=== PATIENT | female | born 1945 | race American Indian/Alaskan Native ===

== ENCOUNTER 2017-12-25 08:36 | Inpatient (IN) | payer MEDICARE ==
[2017-12-25] MEDS ORDERED: MAGNESIUM SULFATE 2GM/50ML 2 GM/50 ML BAG IV ONE ×2 (08:55→09:03)
[2017-12-25] MEDS ORDERED: DUONEB *Not for PRN Use IH ONE (08:55)
[2017-12-25] MEDS ORDERED: PROVENTIL IH ONE ×3 (08:59→11:50)
[2017-12-25] MEDS ORDERED: ATROVENT IH ONE ×3 (08:59→09:09)
[2017-12-25] MEDS ORDERED: NACL 0.9% 250ML 250 ML IV ONE (09:10)
--- NOTE | 2017-12-25 09:11 | Emergency Department Report ---
ED Shortness of Breath HPI - General Chief Complaint: Dyspnea/Respdistress Stated Complaint: RESPIRATORY Time Seen by Provider: 12/25/17 09:05 Source: patient, RN notes reviewed Mode of arrival: Ambulatory Limitations: Physical Limitation - History of Present Illness Initial Comments: This is a 72-year-old female who was previously unknown to this provider. Has a past medical history of tobacco consumption, asthma, hypertension, diabetes. Patient presents to the ER complaining of cough, wheezing, shortness of breath, mucous production. Her symptoms are constant. There were some physical exertion. They decrease with rest. There is no leg pain, there is no leg swelling, there is no chest pain, there is no hematemesis or bright red blood per rectum, there are no DVT or pulmonary embolus risk factors. MD Complaint: shortness of breath, cough, "asthma attack" -: Gradual Improves With: oxygen, rest, bronchodilators, upright position Worsens With: lying flat, exertion Known History Of: asthma Treatments Prior to Arrival: none - Related Data Home Oxygen Therapy: No Home Medications Medication Instructions Recorded Confirmed Last Taken Amlodipine Besylate [Norvasc] 5 mg PO QDAY 12/25/17 12/25/17 Unknown Chlorthalidone [Thalitone] 25 mg PO QDAY 12/25/17 12/25/17 Unknown Pravastatin [Pravachol] 40 mg PO QHS 12/25/17 12/25/17 Unknown cloNIDine [Catapres] 0.2 mg PO TID 12/25/17 12/25/17 Unknown hydrALAZINE [Apresoline TAB] 100 mg PO BID 12/25/17 12/25/17 Unknown Allergies Allergy/AdvReac Type Severity Reaction Status Date / Time No Known Allergies Allergy Verified 12/25/17 09:37 ED Review of Systems ROS: Stated complaint: RESPIRATORY Other details as noted in HPI Constitutional: malaise. denies: fever Eyes: denies: vision change ENT: denies: epistaxis Respiratory: cough, shortness of breath, SOB with exertion, SOB at rest, wheezing Cardiovascular: dyspnea on exertion. denies: chest pain Gastrointestinal: denies: vomiting Genitourinary: denies: dysuria Musculoskeletal: arthralgia Skin: denies: lesions Neurological: weakness Psychiatric: anxiety ED Past Medical Hx - Past Medical History Previous Medical History?: Yes Hx Asthma: Yes - Surgical History Past Surgical History?: Yes Additional Surgical History: hysterectomy - Social History Smoking Status: Current Every Day Smoker Substance Use Type: Alcohol, Prescribed - Medications Home Medications: Home Medications Medication Instructions Recorded Confirmed Last Taken Type Amlodipine Besylate [Norvasc] 5 mg PO QDAY 12/25/17 12/25/17 Unknown History Chlorthalidone [Thalitone] 25 mg PO QDAY 12/25/17 12/25/17 Unknown History Pravastatin [Pravachol] 40 mg PO QHS 12/25/17 12/25/17 Unknown History cloNIDine [Catapres] 0.2 mg PO TID 12/25/17 12/25/17 Unknown History hydrALAZINE [Apresoline TAB] 100 mg PO BID 12/25/17 12/25/17 Unknown History ED Physical Exam - General Limitations: Physical Limitation General appearance: alert, in no apparent distress, obese - Head Head exam: Present: atraumatic, normocephalic - Eye Eye exam: Present: normal appearance, EOMI. Absent: nystagmus - ENT ENT exam: Present: normal exam, normal orophraynx, mucous membranes moist, normal external ear exam - Neck Neck exam: Present: normal inspection, full ROM. Absent: tenderness, meningismus, lymphadenopathy, thyromegaly - Respiratory Respiratory exam: Present: respiratory distress, wheezes, rhonchi, accessory muscle use - Cardiovascular Cardiovascular Exam: Present: normal rhythm, tachycardia, normal heart sounds. Absent: systolic murmur, diastolic murmur, rubs, gallop - GI/Abdominal GI/Abdominal exam: Present: soft, normal bowel sounds. Absent: distended, tenderness, guarding, rebound, rigid, pulsatile mass - Extremities Exam Extremities exam: Present: normal inspection, full ROM, normal capillary refill , other (there is no palpable cord. There is a negative Homans sign.). Absent : tenderness, pedal edema, joint swelling, calf tenderness - Back Exam Back exam: Present: normal inspection, full ROM. Absent: tenderness, CVA tenderness (R), paraspinal tenderness, vertebral tenderness - Neurological Exam Neurological exam: Present: alert, oriented X3, CN II-XII intact, other ( Extraocular movements intact. Tongue midline. No facial droop. Facial sensation intact to light touch in the V1, V2, V3 distribution bilaterally. 5 and 5 strength in 4 extremities.. Sensation is intact to light touch in 4 extremities.). Absent: motor sensory deficit - Psychiatric Psychiatric exam: Present: normal affect, normal mood - Skin Skin exam: Present: warm, dry, intact, normal color. Absent: rash ED Course Vital Signs 12/25/17 12/25/17 12/25/17 08:39 09:04 09:07 Temperature 98.3 F Pulse Rate 101 H 91 H Pulse Rate [ Bilateral Throughout] Respiratory 36 H 24 24 Rate Respiratory Rate [Bilateral Throughout] Blood Pressure 168/76 Blood Pressure 144/64 [Right] O2 Sat by Pulse 84 91 94 Oximetry 12/25/17 12/25/17 12/25/17 09:10 09:45 10:07 Temperature Pulse Rate 88 88 Pulse Rate [ 92 H Bilateral Throughout] Respiratory 20 20 Rate Respiratory 25 H Rate [Bilateral Throughout] Blood Pressure Blood Pressure 137/54 [Right] O2 Sat by Pulse 95 95 Oximetry 12/25/17 12/25/17 12/25/17 10:52 11:37 11:48 Temperature Pulse Rate 89 Pulse Rate [ 88 Bilateral Throughout] Respiratory 24 20 Rate Respiratory 20 Rate [Bilateral Throughout] Blood Pressure Blood Pressure [Right] O2 Sat by Pulse 85 95 Oximetry 12/25/17 12/25/17 12/25/17 12:02 12:09 13:09 Temperature 98.4 F Pulse Rate 104 H 101 H 92 H Pulse Rate [ Bilateral Throughout] Respiratory 22 20 20 Rate Respiratory Rate [Bilateral Throughout] Blood Pressure Blood Pressure 120/84 158/70 [Right] O2 Sat by Pulse 92 94 92 Oximetry ED Medical Decision Making - Lab Data Result diagrams: 12/25/17 09:59 12/25/17 09:59 Vital Signs 12/25/17 12/25/17 12/25/17 08:39 09:04 09:07 Temperature 98.3 F Pulse Rate 101 H 91 H Pulse Rate [ Bilateral Throughout] Respiratory 36 H 24 24 Rate Respiratory Rate [Bilateral Throughout] Blood Pressure 168/76 Blood Pressure 144/64 [Right] O2 Sat by Pulse 84 91 94 Oximetry 12/25/17 12/25/17 12/25/17 09:10 09:45 10:07 Temperature Pulse Rate 88 88 Pulse Rate [ 92 H Bilateral Throughout] Respiratory 20 20 Rate Respiratory 25 H Rate [Bilateral Throughout] Blood Pressure Blood Pressure 137/54 [Right] O2 Sat by Pulse 95 95 Oximetry 12/25/17 12/25/17 12/25/17 10:52 11:37 11:48 Temperature Pulse Rate 89 Pulse Rate [ 88 Bilateral Throughout] Respiratory 24 20 Rate Respiratory 20 Rate [Bilateral Throughout] Blood Pressure Blood Pressure [Right] O2 Sat by Pulse 85 95 Oximetry 12/25/17 12/25/17 12/25/17 12:02 12:09 13:09 Temperature 98.4 F Pulse Rate 104 H 101 H 92 H Pulse Rate [ Bilateral Throughout] Respiratory 22 20 20 Rate Respiratory Rate [Bilateral Throughout] Blood Pressure Blood Pressure 120/84 158/70 [Right] O2 Sat by Pulse 92 94 92 Oximetry Lab Results 12/25/17 12/25/17 Range/Units 09:59 09:59 WBC 13.4 H (4.5-11.0) K/mm3 RBC 4.77 (3.65-5.03) M/mm3 Hgb 14.2 (10.1-14.3) gm/dl Hct 43.6 H (30.3-42.9) % MCV 91 (79-97) fl MCH 30 (28-32) pg MCHC 33 (30-34) % RDW 15.2 (13.2-15.2) % Plt Count 216 (140-440) K/mm3 Lymph % (Auto) 15.2 (13.4-35.0) % [place] % (Auto) 10.2 H (0.0-7.3) % Eos % (Auto) 1.3 (0.0-4.3) % Baso % (Auto) 0.4 (0.0-1.8) % Lymph # 2.0 (1.2-5.4) K/mm3 [place] # 1.4 H (0.0-0.8) K/mm3 Eos # 0.2 (0.0-0.4) K/mm3 Baso # 0.1 (0.0-0.1) K/mm3 Seg Neutrophils % 72.9 H (40.0-70.0) % Seg Neutrophils # 9.8 H (1.8-7.7) K/mm3 Sodium 137 (137-145) mmol/L Potassium 3.5 L (3.6-5.0) mmol/L Chloride 97.9 L (98-107) mmol/L Carbon Dioxide 23 (22-30) mmol/L Anion Gap 20 mmol/L BUN 11 (7-17) mg/dL Creatinine 0.7 (0.7-1.2) mg/dL Estimated GFR > 60 ml/min BUN/Creatinine Ratio 16 % Glucose 137 H (65-100) mg/dL Calcium 9.4 (8.4-10.2) mg/dL - EKG Data -: EKG Interpreted by [place] EKG shows normal: sinus rhythm Rate: normal - EKG Data When compared to previous EKG there are: previous EKG unavailable 12/25/17 13:17 Normal sinus, 91 bpm, normal axis, normal intervals, not morphologically consistent with ST elevation myocardial infarction. Poor R-wave progression is noted. - Radiology Data Radiology results: report reviewed X-ray of the chest, interpreted by radiology, possible right lower lobe process , otherwise no acute disease - Medical Decision Making Differential diagnosis, including but not limited to: COPD, asthma exacerbation , pneumonia, pneumonitis Assessment and plan: 72-year-old female, chronic tobacco use, with no pulmonary embolus or DVT risk factors who is low risk by well's criteria, with cough, wheezing, shortness of breath that is painless. Patient hypoxic on room air. Patient becomes quite symptomatic when ambulating. Patient desaturates to the mid 80s. She is treated aggressively with albuterol Atrovent, steroids, magnesium. She still remains symptomatic. Additional albuterol is ordered. Patient covered empirically with antibiotics, Levaquin. Based on diffuse wheezes, I favor a reactive airway process over an infectious process. Patient appears to be euvolemic, and in my opinion would not benefit from a 30 mL/kg bolus of IV fluids. Tachycardia appreciated, tachypnea appreciated, leukocytosis appreciated. Abnormal vital signs most likely secondary to work of breathing. Leukocytosis most likely a stress demargination. Arterial blood gas is consistent with hypoxemic respiratory failure Case is presented to the Hospital physician, Dr. Gaston, who accepted the patient to the medical service. Critical care attestation.: If time is entered above; I have spent that time in minutes in the direct care of this critically ill patient, excluding procedure time. ED Disposition Clinical Impression: Acute hypoxemic respiratory failure Disposition: OP ADMIT IP TO THIS HOSP Is pt being admited?: Yes Does the pt Need Aspirin: Yes Condition: Good
[2017-12-25 10:35] LABS: Basophils # (Auto) 0.1 K/mm3 (0.0-0.1); Basophils % (Auto) 0.4 % (0.0-1.8); Eosinophils # (Auto) 0.2 K/mm3 (0.0-0.4); Eosinophils % (Auto) 1.3 % (0.0-4.3); Hematocrit 43.6 % (30.3-42.9); Hemoglobin 14.2 gm/dl (10.1-14.3); Lymphocytes % (Auto) 15.2 % (13.4-35.0); Mean Corpuscular HGB Conc 33 % (30-34); Mean Corpuscular Hemoglobin 30 pg (28-32); Mean Corpuscular Volume 91 fl (79-97); Monocytes # (Auto) 1.4 K/mm3 (0.0-0.8); Monocytes % (Auto) 10.2 % (0.0-7.3); Platelet Count 216 K/mm3 (140-440); Red Blood Count 4.77 M/mm3 (3.65-5.03); Red Cell Distribution Width 15.2 % (13.2-15.2)
[2017-12-25 10:47] LABS: BUN/Creatinine Ratio 16; Blood Urea Nitrogen 11 mg/dL (7-17); Calcium 9.4 mg/dL (8.4-10.2); Hemolysis Index 17
--- NOTE | 2017-12-25 11:18 | XRay Report ---
AP CHEST: HISTORY: Shortness of breath No comparison. There is normal heart size and pulmonary vascularity. Subtle air space opacity is suggested along the minor fissure within the right lung and right lung base. This probably represents atelectatic changes. No consolidation, pleural effusion or pneumothorax. IMPRESSION: No acute process noted.
[2017-12-25] MEDS ORDERED: LEVAQUIN 750MG/150ML 750 MG/150 ML BAG IV ONE (13:17)
[2017-12-25] MEDS ORDERED: NACL 0.9% 500 ML 500 ML IV ONE (13:17)
[2017-12-25] MEDS ORDERED: BABY ASPIRIN PO ONE (13:23)
--- NOTE | 2017-12-25 18:57 | History and Physical Report ---
History of Present Illness Date of examination: 12/25/17 Date of admission: 12/25/17 11:50 Medications and Allergies Allergies Allergy/AdvReac Type Severity Reaction Status Date / Time No Known Allergies Allergy Verified 12/25/17 09:37 Home Medications Medication Instructions Recorded Confirmed Last Taken Type Amlodipine Besylate [Norvasc] 5 mg PO QDAY 12/25/17 12/25/17 Unknown History Chlorthalidone [Thalitone] 25 mg PO QDAY 12/25/17 12/25/17 Unknown History Pravastatin [Pravachol] 40 mg PO QHS 12/25/17 12/25/17 Unknown History cloNIDine [Catapres] 0.2 mg PO TID 12/25/17 12/25/17 Unknown History hydrALAZINE [Apresoline TAB] 100 mg PO BID 12/25/17 12/25/17 Unknown History Exam - Constitutional Vitals: Temp Pulse Resp BP Pulse Ox 98.4 F 94 H 18 156/71 94 12/25/17 13:09 12/25/17 16:40 12/25/17 16:40 12/25/17 16:40 12/25/17 16:40 Results - Labs CBC & Chem 7: 12/25/17 09:59 12/25/17 09:59 Labs: Laboratory Last Values WBC 13.4 K/mm3 (4.5-11.0) H 12/25/17 09:59 RBC 4.77 M/mm3 (3.65-5.03) 12/25/17 09:59 Hgb 14.2 gm/dl (10.1-14.3) 12/25/17 09:59 Hct 43.6 % (30.3-42.9) H 12/25/17 09:59 MCV 91 fl (79-97) 12/25/17 09:59 MCH 30 pg (28-32) 12/25/17 09:59 MCHC 33 % (30-34) 12/25/17 09:59 RDW 15.2 % (13.2-15.2) 12/25/17 09:59 Plt Count 216 K/mm3 (140-440) 12/25/17 09:59 Lymph % (Auto) 15.2 % (13.4-35.0) 12/25/17 09:59 [place] % (Auto) 10.2 % (0.0-7.3) H 12/25/17 09:59 Eos % (Auto) 1.3 % (0.0-4.3) 12/25/17 09:59 Baso % (Auto) 0.4 % (0.0-1.8) 12/25/17 09:59 Lymph # 2.0 K/mm3 (1.2-5.4) 12/25/17 09:59 [place] # 1.4 K/mm3 (0.0-0.8) H 12/25/17 09:59 Eos # 0.2 K/mm3 (0.0-0.4) 12/25/17 09:59 Baso # 0.1 K/mm3 (0.0-0.1) 12/25/17 09:59 Seg Neutrophils % 72.9 % (40.0-70.0) H 12/25/17 09:59 Seg Neutrophils # 9.8 K/mm3 (1.8-7.7) H 12/25/17 09:59 POC ABG pH 7.366 (7.35-7.45) 12/25/17 13:25 POC ABG pCO2 39.3 (35-45) 12/25/17 13:25 POC ABG pO2 48 (80-105) L 12/25/17 13:25 POC ABG HCO3 22.5 12/25/17 13:25 POC ABG Total CO2 24 12/25/17 13:25 POC ABG O2 Sat 82 12/25/17 13:25 POC ABG Base Excess -3 12/25/17 13:25 FiO2 21 % 12/25/17 13:25 Sodium 137 mmol/L (137-145) 12/25/17 09:59 Potassium 3.5 mmol/L (3.6-5.0) L 12/25/17 09:59 Chloride 97.9 mmol/L (98-107) L 12/25/17 09:59 Carbon Dioxide 23 mmol/L (22-30) 12/25/17 09:59 Anion Gap 20 mmol/L 12/25/17 09:59 BUN 11 mg/dL (7-17) 12/25/17 09:59 Creatinine 0.7 mg/dL (0.7-1.2) 12/25/17 09:59 Estimated GFR > 60 ml/min 12/25/17 09:59 BUN/Creatinine Ratio 16 % 12/25/17 09:59 Glucose 137 mg/dL (65-100) H 12/25/17 09:59 Calcium 9.4 mg/dL (8.4-10.2) 12/25/17 09:59
[2017-12-25] MEDS ORDERED: TYLENOL PO PRN (18:58)
[2017-12-25] MEDS ORDERED: ZOFRAN IV PRN (18:58)
[2017-12-25] MEDS ORDERED: PERCOCET 5/325 PO PRN (18:58)
[2017-12-25] MEDS ORDERED: SODIUM CHLORIDE FLUSH SYRINGE 10 ML IV PRN (18:58)
[2017-12-25] MEDS ORDERED: DUONEB *Not for PRN Use IH (19:01)
[2017-12-25] MEDS ORDERED: PROVENTIL IH PRN (19:18)
[2017-12-25] MEDS: DUONEB *Not for PRN Use IH SCH (20:12)
[2017-12-25] MEDS: NORVASC PO SCH (20:39)
[2017-12-25] MEDS: THALITONE PO SCH (20:39)
[2017-12-25] MEDS: CATAPRES PO SCH (20:40)
[2017-12-25] MEDS: LEVAQUIN 750MG/150ML 750 MG/150 ML BAG IV SCH (22:38)
[2017-12-25] MEDS: APRESOLINE PO SCH (22:41)
[2017-12-25] MEDS: PRAVACHOL PO SCH (22:41)
[2017-12-25] MEDS: PEPCID PO SCH (22:41)
[2017-12-25] MEDS: SODIUM CHLORIDE FLUSH SYRINGE 10 ML IV SCH (22:42)
[2017-12-26 06:02] LABS: Basophils % (Auto) 0.2 % (0.0-1.8); Hematocrit 38.9 % (30.3-42.9); Hemoglobin 13.2 gm/dl (10.1-14.3); Lymphocytes # (Auto) 1.3 K/mm3 (1.2-5.4); Lymphocytes % (Auto) 7.8 % (13.4-35.0); Mean Corpuscular HGB Conc 34 % (30-34); Mean Corpuscular Hemoglobin 31 pg (28-32); Mean Corpuscular Volume 91 fl (79-97); Monocytes # (Auto) 0.5 K/mm3 (0.0-0.8); Monocytes % (Auto) 2.8 % (0.0-7.3); Platelet Count 198 K/mm3 (140-440); Red Blood Count 4.28 M/mm3 (3.65-5.03); Red Cell Distribution Width 15.1 % (13.2-15.2)
[2017-12-26 06:25] LABS: Alanine Aminotransferase 13 units/L (7-56); Albumin 3.6 g/dL (3.9-5); BUN/Creatinine Ratio 19; Blood Urea Nitrogen 17 mg/dL (7-17); Calcium 8.9 mg/dL (8.4-10.2); Hemolysis Index 3
--- NOTE | 2017-12-26 07:05 | Event Note ---
Date: 12/25/17 See dictated H/p in reports
[2017-12-26] MEDS ORDERED: K-DUR PO ONE (07:10)
[2017-12-26] MEDS: DUONEB *Not for PRN Use IH SCH ×4 (07:14→22:35)
--- NOTE | 2017-12-26 08:17 | History and Physical Report ---
CHIEF COMPLAINT: Increasing shortness of breath for the last 2-3 days. HISTORY OF PRESENT ILLNESS: A 72-year-old with history of COPD, hypertension, and hyperlipidemia, comes in for increasing shortness of breath for the last 3 days with increased wheezing. Not responding to inhalers. Cough productive of mucoid sputum. No fever, no chills. No recent travels. No exacerbating or relieving factors. Improved with oxygen and bronchodilators. PAST MEDICAL HISTORY: As mentioned, history of asthma and COPD. PAST SURGICAL HISTORY: Hysterectomy. SOCIAL HISTORY: Current everyday smoker. FAMILY HISTORY: Hypertension. CURRENT MEDICATIONS: Amlodipine 5 mg once a day, pravastatin 40 mg p.o. daily, clonidine 0.2 t.i.d., hydralazine 100 mg p.o. b.i.d., chlorthalidone 25 mg once a day. REVIEW OF SYSTEMS: Significant for increasing wheezing and shortness of breath and productive cough. Otherwise, review of systems negative. A 14-point review of systems done. PHYSICAL EXAMINATION: GENERAL: As elderly female in respiratory distress, moderate. VITAL SIGNS: Blood pressure 156/86, temperature 98, pulse is 89, respirations are 21. HEENT: Unremarkable. Pupils equal and reactive. NECK: Supple, no lymphadenopathy, no thyromegaly. LUNGS: Bilateral inspiratory and expiratory rhonchi present. CARDIOVASCULAR: S1, S2 heard. No gallop, no murmur, no rub. Apical impulse in left fifth intercostal space and midclavicular line. ABDOMEN: Soft and benign. No hepatosplenomegaly. No guarding, no rigidity. Hernial orifices are normal. EXTREMITIES: Good pedal pulses. No pedal edema. CENTRAL NERVOUS SYSTEM: Alert and oriented x 4, nonfocal exam. SKIN: Normal. LABORATORY DATA: White count is 13,400, H and H is 14.2 and 43.6, platelet count is 216,000. ABG significant for pH of 7.366, pCO2 of 39, pO2 of 48, bicarbonate of 22. Electrolytes: Potassium is low 3.5, glucose is 137. Chest x-ray shows changes consistent with COPD. No infiltrate. No acute process. EKG sinus tachycardia. Nonspecific ST-T wave changes. ASSESSMENT AND PLAN: 1. Acute respiratory failure secondary to chronic obstructive pulmonary disease. The patient started on IV Solu-Medrol, IV Levaquin and DuoNeb q. 6 round the clock and q. 3 p.r.n. 2. Hypertension. Continue amlodipine, chlorthalidone, clonidine and hydralazine. 3. Hyperlipidemia. Continue pravastatin. 4. Hypokalemia. The patient is supplemented. 5. Deep venous thrombosis prophylaxis, heparin. 6. Chronic obstructive pulmonary disease exacerbation as mentioned and acute respiratory failure. IV Solu-Medrol, IV Levaquin and DuoNebs. JOB# [id number] ANA/NTS
[2017-12-26] MEDS: NORVASC PO SCH (09:44)
[2017-12-26] MEDS: PEPCID PO SCH ×2 (09:45→22:30)
[2017-12-26] MEDS: CATAPRES PO SCH ×3 (09:45→20:41)
[2017-12-26] MEDS: APRESOLINE PO SCH ×2 (09:45→22:30)
[2017-12-26] MEDS: LEVAQUIN 750MG/150ML 750 MG/150 ML BAG IV SCH (09:46)
[2017-12-26] MEDS: HEPARIN SUB-Q SCH ×2 (09:54→22:32)
[2017-12-26] MEDS: THALITONE PO SCH (09:54)
--- NOTE | 2017-12-26 11:06 | Consultation ---
History of Present Illness Consult date: 12/26/17 Requesting physician: STIVEN HILL Reason for consult: other (Acute Hypoxemic Respiratory Failure) History of present illness: PULMONARY/CCM CONSULT NOTE (Full dictation # [id number]) Please see dictated notes for full details Medications and Allergies Allergies Allergy/AdvReac Type Severity Reaction Status Date / Time No Known Allergies Allergy Verified 12/25/17 09:37 Home Medications Medication Instructions Recorded Confirmed Last Taken Type Amlodipine Besylate [Norvasc] 5 mg PO QDAY 12/25/17 12/25/17 Unknown History Chlorthalidone [Thalitone] 25 mg PO QDAY 12/25/17 12/25/17 Unknown History Pravastatin [Pravachol] 40 mg PO QHS 12/25/17 12/25/17 Unknown History cloNIDine [Catapres] 0.2 mg PO TID 12/25/17 12/25/17 Unknown History hydrALAZINE [Apresoline TAB] 100 mg PO BID 12/25/17 12/25/17 Unknown History Active Meds: Active Medications Acetaminophen (Tylenol) 650 mg PO Q4H PRN PRN Reason: Pain MILD(1-3)/Fever >100.5/PHILLIP Albuterol (Proventil) 2.5 mg IH Q4HRT PRN PRN Reason: Shortness Of Breath Albuterol/Ipratropium (Duoneb *Not For Prn Use*) 1 ampul IH QIDRT [facility] Last Admin: 12/26/17 07:14 Dose: 1 ampul Amlodipine Besylate (Norvasc) 5 mg PO QDAY [facility] Last Admin: 12/26/17 09:44 Dose: 5 mg Chlorthalidone (Thalitone) 25 mg PO QDAY [facility] Last Admin: 12/26/17 09:54 Dose: 25 mg Clonidine HCl (Catapres) 0.2 mg PO TID [facility] Last Admin: 12/26/17 09:45 Dose: 0.2 mg Famotidine (Pepcid) 20 mg PO BID [facility] Last Admin: 12/26/17 09:45 Dose: 20 mg Heparin Sodium (Porcine) (Heparin) 5,000 unit SUB-Q Q12HR [facility] Last Admin: 12/26/17 09:54 Dose: 5,000 unit Hydralazine HCl (Apresoline) 100 mg PO BID [facility] Last Admin: 12/26/17 09:45 Dose: 100 mg Levofloxacin/Dextrose (Levaquin 750mg/150ml) 750 mg in 150 mls @ 100 mls/hr IV Q24HR [facility]; Protocol Last Admin: 12/26/17 09:46 Dose: 100 mls/hr Methylprednisolone Sodium Succinate (Solu-Medrol) 125 mg IV Q8HR [facility] Last Admin: 12/26/17 06:39 Dose: 125 mg Ondansetron HCl (Zofran) 4 mg IV Q8H PRN PRN Reason: Nausea And Vomiting Oxycodone/Acetaminophen (Percocet 5/325) 1 tab PO Q6H PRN PRN Reason: Pain, Moderate (4-6) Potassium Chloride (K-Dur) 20 meq PO ONCE ONE Stop: 12/26/17 07:11 Pravastatin Sodium (Pravachol) 40 mg PO QHS [facility] Last Admin: 12/25/17 22:41 Dose: 40 mg Sodium Chloride (Sodium Chloride Flush Syringe 10 Ml) 10 ml IV BID [facility] Last Admin: 12/25/17 22:42 Dose: 10 ml Sodium Chloride (Sodium Chloride Flush Syringe 10 Ml) 10 ml IV PRN PRN PRN Reason: LINE FLUSH Physical Examination Vital signs: Vital Signs Temp Pulse Resp BP Pulse Ox 98.3 F 101 H 36 H 168/76 84 12/25/17 08:39 12/25/17 08:39 12/25/17 08:39 12/25/17 08:39 12/25/17 08:39 Results - Laboratory Findings CBC and BMP: 12/26/17 05:28 12/26/17 05:28 ABG POC ABG pH 7.366 (7.35-7.45) 12/25/17 13:25 POC ABG pCO2 39.3 (35-45) 12/25/17 13:25 POC ABG pO2 48 (80-105) L 12/25/17 13:25 POC ABG HCO3 22.5 12/25/17 13:25 POC ABG Total CO2 24 12/25/17 13:25 POC ABG O2 Sat 82 12/25/17 13:25 Abnormal lab findings: Abnormal Labs 12/25/17 12/25/17 12/25/17 09:59 09:59 13:25 WBC 13.4 H Hct 43.6 H Lymph % (Auto) [place] % (Auto) 10.2 H [place] # 1.4 H Seg Neutrophils % 72.9 H Seg Neutrophils # 9.8 H POC ABG pO2 48 L Potassium 3.5 L Chloride 97.9 L Glucose 137 H Albumin 12/26/17 12/26/17 05:28 05:28 WBC 16.2 H Hct Lymph % (Auto) 7.8 L [place] % (Auto) [place] # Seg Neutrophils % 89.2 H Seg Neutrophils # 14.5 H POC ABG pO2 Potassium Chloride Glucose 147 H Albumin 3.6 L
[2017-12-26 14:38] LABS: C-Reactive Protein 9.3 mg/dL (0.00-1.30)
--- NOTE | 2017-12-26 14:50 | Progress Note ---
Assessment and Plan Assessment and plan: Patient is 72 yo woman with a history copd, hypertension, dyslipidemia and tobacco dependency who presented with sob. She was found to have pO2 of only 48. -Acute hypoxic respiratory failure: continue o2 and treat the copd -AE COPD: treat with iv steroids, nebs, abx -Tobacco dependency: dependency counselor on stopping, add nicotine -Hypokalemia: monitor closely -DLP: continue statin -Hypertension: continue norvasc, low salt diet -DVT prophylaxis: sq heparin History Interval history: Patient was seen and examined. Follow-up on current diagnosis of sob which is improving. Overnight uneventful. Patient denies any chest pain, nausea/vomiting or severe headaches. Imaging, nursing note, chart, labs and old chart reviewed. Discussed with patient. Hospitalist Physical - Physical exam Narrative exam: GEN: WDWN, NAD, Awake, Alert, Orientated x3 HEENT: NCAT, EOMI, PERRL, OP Clear NECK: supple, no adenopathy, no thyromegaly, no JVD CVS/HEART: RRR, normal S1S2, pulses present bilaterally CHEST/LUNGS: diminished and rhonchi bilateral, Symmetrical chest expansion, good air entry bilaterally GI/Abdomen: soft, NTND, good bowel sounds, no guarding or rebound /Bladder: no suprapubic tenderness, no CVA or paraspinal tenderness EXT/Skin: no c/c/e, no obvious rash MSK: FROM x 4 Neuro: CN 2-12 grossly intact, no new focal deficits Psych: calm - Constitutional Vitals: Temp Pulse Resp BP Pulse Ox 98.7 F 105 H 20 155/68 97 12/26/17 08:17 12/26/17 11:45 12/26/17 11:45 12/26/17 09:44 12/26/17 11:35 Results - Labs CBC & Chem 7: 12/26/17 05:28 12/26/17 05:28 Labs: Laboratory Last Values WBC 16.2 K/mm3 (4.5-11.0) H 12/26/17 05:28 RBC 4.28 M/mm3 (3.65-5.03) 12/26/17 05:28 Hgb 13.2 gm/dl (10.1-14.3) 12/26/17 05:28 Hct 38.9 % (30.3-42.9) 12/26/17 05:28 MCV 91 fl (79-97) 12/26/17 05:28 MCH 31 pg (28-32) 12/26/17 05:28 MCHC 34 % (30-34) 12/26/17 05:28 RDW 15.1 % (13.2-15.2) 12/26/17 05:28 Plt Count 198 K/mm3 (140-440) 12/26/17 05:28 Lymph % (Auto) 7.8 % (13.4-35.0) L 12/26/17 05:28 [place] % (Auto) 2.8 % (0.0-7.3) 12/26/17 05:28 Eos % (Auto) 0.0 % (0.0-4.3) 12/26/17 05:28 Baso % (Auto) 0.2 % (0.0-1.8) 12/26/17 05:28 Lymph # 1.3 K/mm3 (1.2-5.4) 12/26/17 05:28 [place] # 0.5 K/mm3 (0.0-0.8) 12/26/17 05:28 Eos # 0.0 K/mm3 (0.0-0.4) 12/26/17 05:28 Baso # 0.0 K/mm3 (0.0-0.1) 12/26/17 05:28 Seg Neutrophils % 89.2 % (40.0-70.0) H 12/26/17 05:28 Seg Neutrophils # 14.5 K/mm3 (1.8-7.7) H 12/26/17 05:28 POC ABG pH 7.366 (7.35-7.45) 12/25/17 13:25 POC ABG pCO2 39.3 (35-45) 12/25/17 13:25 POC ABG pO2 48 (80-105) L 12/25/17 13:25 POC ABG HCO3 22.5 12/25/17 13:25 POC ABG Total CO2 24 12/25/17 13:25 POC ABG O2 Sat 82 12/25/17 13:25 POC ABG Base Excess -3 12/25/17 13:25 FiO2 21 % 12/25/17 13:25 Sodium 137 mmol/L (137-145) 12/26/17 05:28 Potassium 3.8 mmol/L (3.6-5.0) 12/26/17 05:28 Chloride 98.5 mmol/L (98-107) 12/26/17 05:28 Carbon Dioxide 24 mmol/L (22-30) 12/26/17 05:28 Anion Gap 18 mmol/L 12/26/17 05:28 BUN 17 mg/dL (7-17) 12/26/17 05:28 Creatinine 0.9 mg/dL (0.7-1.2) 12/26/17 05:28 Estimated GFR > 60 ml/min 12/26/17 05:28 BUN/Creatinine Ratio 19 % 12/26/17 05:28 Glucose 147 mg/dL (65-100) H 12/26/17 05:28 Calcium 8.9 mg/dL (8.4-10.2) 12/26/17 05:28 Total Bilirubin 0.30 mg/dL (0.1-1.2) 12/26/17 05:28 AST 16 units/L (5-40) 12/26/17 05:28 ALT 13 units/L (7-56) 12/26/17 05:28 Alkaline Phosphatase 102 units/L (35-129) 12/26/17 05:28 C-Reactive Protein 9.30 mg/dL (0.00-1.30) H 12/26/17 13:32 NT-Pro-B Natriuret Pep 685.6 pg/mL (0-900) 12/26/17 13:32 Total Protein 7.0 g/dL (6.3-8.2) 12/26/17 05:28 Albumin 3.6 g/dL (3.9-5) L 12/26/17 05:28 Albumin/Globulin Ratio 1.1 % 12/26/17 05:28
[2017-12-26] MEDS: PULMICORT IH SCH ×2 (15:44→22:35)
[2017-12-26] MEDS: BROVANA NEBU IH SCH ×2 (15:44→22:35)
[2017-12-26] MEDS: HABITROL TD SCH (16:57)
[2017-12-26] MEDS: SODIUM CHLORIDE FLUSH SYRINGE 10 ML IV SCH ×2 (16:58→22:33)
[2017-12-26] MEDS: PRAVACHOL PO SCH (22:30)
--- NOTE | 2017-12-27 05:54 | Consultation ---
PULMONARY CONSULTATION NOTE CONSULTING PHYSICIAN: Eddi Gaston MD REASON FOR CONSULTATION: Acute respiratory failure. CHIEF COMPLAINT AND HISTORY OF PRESENT ILLNESS: The patient is a 72-year-old -[place] female with past medical history significant likely for a diagnosis of chronic obstructive pulmonary disease versus asthma, for which she should be on home bronchodilators including Symbicort as well as short acting bronchodilators. She admits to running out of her short-acting bronchodilator therapy, came to the Emergency Room complaining of a few days of increased shortness of breath and cough, mostly nonproductive. Denied any hemoptysis. She was wheezing. She denied any actual chest pains. She had some palpitations, has dyspnea on exertion. She denied any leg pain or swelling. She was seen in the Emergency Room and essentially admitted with a diagnosis of asthma exacerbation. Of note, she is not on any home oxygen and has been hypoxemic over here. She states she is up to date on her flu and pneumonia vaccination. She admits that her sister is at home with an upper respiratory tract type symptom. It may have contributed to her shortness of breath. She does have a [id number] tobacco smoking history, continues to smoke. She describes herself as smoking a pack every about a couple of days. When I stopped by to see her, she was sitting in bed, head of the bed was up, talking in slightly interrupted sentences, in mild to moderate respiratory distress. She denied nausea, vomiting, or overt aspiration. She denied any rhinorrhea. She denied any itchy eyes, any suggestion of allergic type reaction. This really is as much of the history of presentation as I have. PAST MEDICAL HISTORY: Significant for: 1. COPD. 2. Tobacco use disorder. 3. I believe a history of hypertension and a history of hyperlipidemia. She is also obese. PAST SURGICAL HISTORY: She has had a hysterectomy. MEDICATIONS: She was on at the time I stopped by to see her, were reviewed. Pertinent medications included DuoNeb treatments nebulized q.i.d., Norvasc 5 mg p.o. daily, chlorthalidone 25 mg p.o. daily, clonidine 0.2 mg p.o. t.i.d., Pepcid 20 mg b.i.d., heparin 5000 units subq q. 12 hours, hydralazine 100 mg p.o. b.i.d., Levaquin 750 mg p.o. daily, Solu-Medrol 125 mg IV q.8 hours, p.r.n. Percocet, and Pravachol 40 mg p.o. at bedtime. ALLERGIES: No known drug allergies. DIET: Obese lady, denies acute weight loss or gain in the preceding few weeks to months. FAMILY AND SOCIAL HISTORY: Lives in the community. 10+ pack year tobacco smoking history. Denies alcohol, illicit drug use or abuse. REVIEW OF SYSTEMS: She denies any loss of consciousness. No new onset seizures. No new onset focal weakness. No gross hematochezia or melena. No gross hematuria or dysuria. She admits to snoring. She admits to nonrestorative sleep. Denied any palpitations. She does complain of some pain in her right side of her neck. She denies any trauma. She denies any polydipsia or polyuria. She denies heat or cold intolerance. Complete 13-system review of systems obtained. Pertinent positives and/or negatives as in body of history above, otherwise are noncontributory. PHYSICAL EXAMINATION: VITAL SIGNS: On examination at presentation, she was afebrile, temperature 98.3 degrees Fahrenheit, pulse was 101, respiratory rate 36, blood pressure 168/76, and oxygen sat was 84%, inspired oxygen concentration was not recorded. At the time I saw her, she was 97% on 3 liters nasal cannula. GENERAL: Elderly looking -[place]ic female, looks her stated age, normocephalic, atraumatic, talking to me and occasionally in interrupted sentences, in mild to moderate respiratory distress. HEAD, EYES, EARS, NOSE AND THROAT: She is anicteric. No conjunctival erythema. Oropharynx is a Mallampati #4 oropharynx. Grossly, no palpable lymph nodes in the supraclavicular or submandibular lymph node chains. No thyromegaly, no gross jugular venous distention. LUNGS: Auscultation of both lung doyle significant for bilateral expiratory wheezing and rhonchi. Slight use of accessory muscles. HEART: Heart sounds 1 and 2 are heard at the time of my evaluation, regular rate and rhythm. No rubs or murmurs. ABDOMEN: Soft, full, bowel sounds are positive. Mild epigastric tenderness, no palpable hepatosplenomegaly. EXTREMITIES: Without overt digital clubbing or cyanosis, no pedal edema. Dorsalis pedis pulses were palpable bilaterally. No calf pain or tenderness. NEUROLOGIC: Pupils were equal, round, and reactive to light and accommodation. They were about 3 mm bilaterally. Cranial nerves 2-6 were intact. She moves all 4 extremities spontaneously. Strength was 5/5 in all 4 extremities. SKIN: The skin was of normal turgor. No cellulitis, no rash. LABORATORY DATA: From my review are as follows: Admission white cell count 13,400 with a hemoglobin of 14.2, hematocrit of 43.6, and platelet count 216. Arterial blood gas showed a pH of 7.37, pCO2 of 39, pO2 of 48 and that was on room air. Serum sodium was 137, potassium 3.5, chloride 98, bicarbonate 23, BUN 11, creatinine 0.7, and glucose 137. No microbiology studies. Chest x-ray was done. I have reviewed the chest x-ray. I have also reviewed the radiologist's interpretation. I cannot rule out mild interstitial edema. There is borderline cardiomegaly, some evidence of vascular congestion, ____ chronic looking interstitial markings in particular in the right lower lobe region. The film is rotated, I believe to the left. No gross pneumothorax, no gross bony fracture. ASSESSMENT AND PLAN: 1. Acute hypoxemic respiratory failure. 2. Acute chronic obstructive pulmonary disease exacerbation. 3. History of hypertension. 4. Obesity. 5. Tobacco use disorder. 6. History of diabetes. PLAN: 1. We will continue current therapies. We will continue systemic steroids. However, we will wean the dose to 80 mg IV q.8 hours. We will continue with DuoNeb treatments. I will also be adding Brovana as well as Pulmicort. Sputum will be sent for Gram stain, cultures and sensitivities. I feel like there may be an element of interstitial edema. I will get a BNP level. Intermediate probe for venous thromboembolic event. I will go ahead and get a D-dimer level plus or minus further testing. Supplemental oxygen will be continued to keep sats greater than or equal to about 90%. Aspiration precautions will be maintained. I spent over 15 minutes counseling on tobacco cessation. She will benefit from outpatient Sleep Clinic evaluation. Glycemic control will be continued with sliding scale insulin. We will continue GI and DVT prophylaxis. Flu and pneumonia vaccination will also be continued per protocol. In light of her diabetes and with her neck pain she is complaining about, I will get a serum troponin to make sure that is not an atypical chest pain equivalent. Otherwise, flu and pneumonia vaccination will be addressed per protocol. Thank you very much for the consult. We will follow along. We will make further recommendations as the picture progresses/becomes clearer. I should mention we do agree with empiric antibiotic therapy. JOB# [id number] NIURKA/SARIAH
[2017-12-27] MEDS ORDERED: BROVANA NEBU IH ONE (08:56)
[2017-12-27] MEDS ORDERED: PULMICORT IH ONE (08:56)
[2017-12-27] MEDS: BROVANA NEBU IH SCH ×2 (09:20→22:48)
[2017-12-27] MEDS: PULMICORT IH SCH ×2 (09:20→22:48)
[2017-12-27] MEDS: DUONEB *Not for PRN Use IH SCH ×4 (09:20→22:49)
[2017-12-27] MEDS: HEPARIN SUB-Q SCH ×2 (09:55→22:40)
[2017-12-27] MEDS: THALITONE PO SCH (09:55)
[2017-12-27] MEDS: PEPCID PO SCH ×2 (09:55→21:48)
[2017-12-27] MEDS: CATAPRES PO SCH ×3 (09:55→21:49)
[2017-12-27] MEDS: HABITROL TD SCH (09:56)
[2017-12-27] MEDS: APRESOLINE PO SCH ×2 (09:56→21:48)
[2017-12-27] MEDS: SODIUM CHLORIDE FLUSH SYRINGE 10 ML IV SCH ×2 (09:57→21:48)
[2017-12-27] MEDS: NORVASC PO SCH (09:57)
[2017-12-27] MEDS ORDERED: LEVAQUIN PO SCH (10:00)
--- NOTE | 2017-12-27 16:22 | Progress Note ---
Assessment and Plan Assessment and plan: Patient is 72 yo woman with a history copd, hypertension, dyslipidemia and tobacco dependency who presented with sob. She was found to have pO2 of only 48. -Acute hypoxic respiratory failure: continue o2 and treat the copd -AE COPD: treat with iv steroids, nebs, abx -Tobacco dependency: college counselor on stopping, add nicotine -Hypokalemia: monitor closely -DLP: continue statin -Hypertension: continue norvasc, low salt diet -DVT prophylaxis: sq heparin elevated d-dimer, get cta chest r/o pe History Interval history: Patient was seen and examined. Follow-up on current diagnosis of sob which is improving. Overnight uneventful. Patient denies any chest pain, nausea/vomiting or severe headaches. Imaging, nursing note, chart, labs and old chart reviewed. Discussed with patient. Hospitalist Physical - Physical exam Narrative exam: GEN: WDWN, NAD, Awake, Alert, Orientated x3 HEENT: NCAT, EOMI, PERRL, OP Clear NECK: supple, no adenopathy, no thyromegaly, no JVD CVS/HEART: RRR, normal S1S2, pulses present bilaterally CHEST/LUNGS: diminished and rhonchi bilateral, Symmetrical chest expansion, good air entry bilaterally GI/Abdomen: soft, NTND, good bowel sounds, no guarding or rebound /Bladder: no suprapubic tenderness, no CVA or paraspinal tenderness EXT/Skin: no c/c/e, no obvious rash MSK: FROM x 4 Neuro: CN 2-12 grossly intact, no new focal deficits Psych: calm - Constitutional Vitals: Temp Pulse Resp BP Pulse Ox 98.6 F 105 H 20 153/79 92 12/27/17 13:52 12/27/17 14:51 12/27/17 13:52 12/27/17 14:51 12/27/17 13:52 Results - Labs CBC & Chem 7: 12/26/17 05:28 12/26/17 05:28 Labs: Laboratory Last Values WBC 16.2 K/mm3 (4.5-11.0) H 12/26/17 05:28 RBC 4.28 M/mm3 (3.65-5.03) 12/26/17 05:28 Hgb 13.2 gm/dl (10.1-14.3) 12/26/17 05:28 Hct 38.9 % (30.3-42.9) 12/26/17 05:28 MCV 91 fl (79-97) 12/26/17 05:28 MCH 31 pg (28-32) 12/26/17 05:28 MCHC 34 % (30-34) 12/26/17 05:28 RDW 15.1 % (13.2-15.2) 12/26/17 05:28 Plt Count 198 K/mm3 (140-440) 12/26/17 05:28 Lymph % (Auto) 7.8 % (13.4-35.0) L 12/26/17 05:28 [place] % (Auto) 2.8 % (0.0-7.3) 12/26/17 05:28 Eos % (Auto) 0.0 % (0.0-4.3) 12/26/17 05:28 Baso % (Auto) 0.2 % (0.0-1.8) 12/26/17 05:28 Lymph # 1.3 K/mm3 (1.2-5.4) 12/26/17 05:28 [place] # 0.5 K/mm3 (0.0-0.8) 12/26/17 05:28 Eos # 0.0 K/mm3 (0.0-0.4) 12/26/17 05:28 Baso # 0.0 K/mm3 (0.0-0.1) 12/26/17 05:28 Seg Neutrophils % 89.2 % (40.0-70.0) H 12/26/17 05:28 Seg Neutrophils # 14.5 K/mm3 (1.8-7.7) H 12/26/17 05:28 D-Dimer 473.73 ng/mlDDU (0-234) H 12/26/17 13:32 POC ABG pH 7.366 (7.35-7.45) 12/25/17 13:25 POC ABG pCO2 39.3 (35-45) 12/25/17 13:25 POC ABG pO2 48 (80-105) L 12/25/17 13:25 POC ABG HCO3 22.5 12/25/17 13:25 POC ABG Total CO2 24 12/25/17 13:25 POC ABG O2 Sat 82 12/25/17 13:25 POC ABG Base Excess -3 12/25/17 13:25 FiO2 21 % 12/25/17 13:25 Sodium 137 mmol/L (137-145) 12/26/17 05:28 Potassium 3.8 mmol/L (3.6-5.0) 12/26/17 05:28 Chloride 98.5 mmol/L (98-107) 12/26/17 05:28 Carbon Dioxide 24 mmol/L (22-30) 12/26/17 05:28 Anion Gap 18 mmol/L 12/26/17 05:28 BUN 17 mg/dL (7-17) 12/26/17 05:28 Creatinine 0.9 mg/dL (0.7-1.2) 12/26/17 05:28 Estimated GFR > 60 ml/min 12/26/17 05:28 BUN/Creatinine Ratio 19 % 12/26/17 05:28 Glucose 147 mg/dL (65-100) H 12/26/17 05:28 Calcium 8.9 mg/dL (8.4-10.2) 12/26/17 05:28 Total Bilirubin 0.30 mg/dL (0.1-1.2) 12/26/17 05:28 AST 16 units/L (5-40) 12/26/17 05:28 ALT 13 units/L (7-56) 12/26/17 05:28 Alkaline Phosphatase 102 units/L (35-129) 12/26/17 05:28 C-Reactive Protein 9.30 mg/dL (0.00-1.30) H 12/26/17 13:32 NT-Pro-B Natriuret Pep 685.6 pg/mL (0-900) 12/26/17 13:32 Total Protein 7.0 g/dL (6.3-8.2) 12/26/17 05:28 Albumin 3.6 g/dL (3.9-5) L 12/26/17 05:28 Albumin/Globulin Ratio 1.1 % 12/26/17 05:28
--- NOTE | 2017-12-27 18:32 | Progress Note ---
Assessment and Plan Patient alert, awake. still having shortness of breath and wheezing.O2 saturation 92% on 2 litrs O2.Patient also has non productive cough - Patient Problems (1) Acute hypoxemic respiratory failure Current Visit: Yes Status: Acute Plan to address problem: O2 2 litrs via nasal canula. Albuterol/atrovent aerosol treatments q 6 hours. Continue I/V solumedrol. Increase the dose 100mg I/V q 6 hours. Continue Levaquin. Continue S/C Heparin. Continue Famotadine. (2) Bilateral pulmonary infiltrates on chest x-ray Current Visit: Yes Status: Acute Plan to address problem: BILATERAL GROUND GLASS INFILTRATES RTEPORTED ON cat SCAN OF CHEST. Patient is on Antibiotic levaquin. (3) COPD exacerbation Current Visit: Yes Status: Acute Plan to address problem: O2 2 litrs via nasal canula. Albuterol/atrovent aerosol treatments q 6 hours. Continue I/V solumedrol. Increase the dose 100mg I/V q 6 hours. Continue Levaquin. Continue S/C Heparin. Continue Famotadine. Subjective Date of service: 12/27/17 Interval history: Patient alert, awake. still having shortness of breath and wheezing.O2 saturation 92% on 2 litrs O2.Patient also has non productive cough Objective Vital Signs - 12hr 12/27/17 12/27/17 12/27/17 09:22 09:46 09:49 Temperature 97.9 F Pulse Rate 107 H Pulse Rate [ 88 108 H Anterior Bilateral Throughout] Respiratory 20 Rate Respiratory 20 20 Rate [Anterior Bilateral Throughout] Blood Pressure 155/83 O2 Sat by Pulse 98 91 Oximetry 12/27/17 12/27/17 12/27/17 09:55 09:57 10:00 Temperature Pulse Rate 107 H 107 H Pulse Rate [ Anterior Bilateral Throughout] Respiratory 22 Rate Respiratory Rate [Anterior Bilateral Throughout] Blood Pressure 155/83 155/83 O2 Sat by Pulse 96 Oximetry 12/27/17 12/27/17 12/27/17 13:07 13:22 13:52 Temperature 98.6 F Pulse Rate 105 H Pulse Rate [ 104 H 104 H Anterior Bilateral Throughout] Respiratory 20 Rate Respiratory 20 20 Rate [Anterior Bilateral Throughout] Blood Pressure 153/79 O2 Sat by Pulse 92 Oximetry 12/27/17 12/27/17 12/27/17 14:51 17:42 17:53 Temperature Pulse Rate 105 H Pulse Rate [ 94 H 102 H Anterior Bilateral Throughout] Respiratory Rate Respiratory 18 18 Rate [Anterior Bilateral Throughout] Blood Pressure 153/79 O2 Sat by Pulse Oximetry Constitutional: alert, appears uncomfortable Eyes: non-icteric ENT: oropharynx moist Neck: supple, no lymphadenopathy Effort: mildly labored Ascultation: Bilateral: wheezes, rhonchi Cardiovascular: regular rate and rhythm Gastrointestinal: normoactive bowel sounds, soft, non-tender Integumentary: normal Extremities: no cyanosis, no edema Neurologic: normal mental status, non-focal exam, pupils equal and round, CN II- XII normal Psychiatric: anxious CBC and BMP: 12/26/17 05:28 12/26/17 05:28 ABG, PT/INR, D-dimer: ABG POC ABG pH 7.366 (7.35-7.45) 12/25/17 13:25 POC ABG pCO2 39.3 (35-45) 12/25/17 13:25 POC ABG pO2 48 (80-105) L 12/25/17 13:25 POC ABG HCO3 22.5 12/25/17 13:25 POC ABG Total CO2 24 12/25/17 13:25 POC ABG O2 Sat 82 12/25/17 13:25 PT/INR, D-dimer D-Dimer 473.73 ng/mlDDU (0-234) H 12/26/17 13:32 Abnormal lab findings: Abnormal Labs 12/25/17 12/25/17 12/25/17 09:59 09:59 13:25 WBC 13.4 H Hct 43.6 H Lymph % (Auto) [place] % (Auto) 10.2 H [place] # 1.4 H Seg Neutrophils % 72.9 H Seg Neutrophils # 9.8 H D-Dimer POC ABG pO2 48 L Potassium 3.5 L Chloride 97.9 L Glucose 137 H C-Reactive Protein Albumin 12/26/17 12/26/17 12/26/17 05:28 05:28 13:32 WBC 16.2 H Hct Lymph % (Auto) 7.8 L [place] % (Auto) [place] # Seg Neutrophils % 89.2 H Seg Neutrophils # 14.5 H D-Dimer POC ABG pO2 Potassium Chloride Glucose 147 H C-Reactive Protein 9.30 H Albumin 3.6 L 12/26/17 13:32 WBC Hct Lymph % (Auto) [place] % (Auto) [place] # Seg Neutrophils % Seg Neutrophils # D-Dimer 473.73 H POC ABG pO2 Potassium Chloride Glucose C-Reactive Protein Albumin Chest x-ray: report reviewed (Reported no acute process.), image reviewed CT scan - chest: report reviewed (No PE,Bilateral ground glass Opacities, Cholelithiasis.), image reviewed
--- NOTE | 2017-12-27 19:43 | Cat Scan Report ---
FINAL REPORT PROCEDURE: CT ANGIO CHEST TECHNIQUE: Computerized axial tomographic angiography of the chest and pulmonary arteries was performed after the IV injection of iodinated nonionic contrast. The image data was postprocessed using maximum intensity projection (MIP) and 2-dimensional multiplanar reformatted (MPR) techniques. The examination is specifically tailored to the evaluation of the pulmonary arteries per clinical request. HISTORY: Short of breath 786.09, chest pain 786.50, sob, hypoxia, elevated d dimer COMPARISON: No prior studies are available for comparison. FINDINGS: Lobular heterogeneous right thyroid lobe. Heart and pericardium: Normal. Thoracic aorta: There is atherosclerotic calcification of the aorta. Pulmonary vasculature: Normal. No pulmonary emboli. Lymph nodes: No enlarged thoracic lymph nodes. Lungs: There is linear atelectasis or scarring in bilateral lung bases. There is bilateral geographic ground-glass density in bilateral upper lobes, which may be related to multifocal pneumonia. There is a small similar focus in the medial right lower lobe. Pleural space: No effusion, thickening, or pneumothorax. Musculoskeletal structures: No significant abnormality. Upper abdominal structures: Cholelithiasis. There is left adrenal hyperplasia. There is a nodule in the right adrenal gland the, which measures up to 14 millimeters. IMPRESSION: No evidence of pulmonary emboli. Bilateral scattered geographic pulmonary ground-glass opacities, which may be related to multifocal pneumonia. Correlate clinically Cholelithiasis.
[2017-12-27] MEDS: PRAVACHOL PO SCH (21:48)
[2017-12-28] MEDS: LEVAQUIN 750MG/150ML 750 MG/150 ML BAG IV SCH ×2 (01:00→09:35)
[2017-12-28] MEDS: BROVANA NEBU IH SCH ×2 (07:31→19:25)
[2017-12-28] MEDS: PULMICORT IH SCH ×2 (07:31→19:25)
[2017-12-28] MEDS: DUONEB *Not for PRN Use IH SCH ×4 (07:32→19:26)
[2017-12-28] MEDS: CATAPRES PO SCH ×3 (08:50→21:37)
[2017-12-28] MEDS: NORVASC PO SCH (09:35)
[2017-12-28] MEDS: PEPCID PO SCH ×2 (09:36→21:37)
[2017-12-28] MEDS: HEPARIN SUB-Q SCH ×2 (09:36→21:38)
[2017-12-28] MEDS: THALITONE PO SCH (09:36)
[2017-12-28] MEDS: APRESOLINE PO SCH ×2 (09:36→21:37)
[2017-12-28] MEDS: HABITROL TD SCH (09:36)
[2017-12-28] MEDS: SODIUM CHLORIDE FLUSH SYRINGE 10 ML IV SCH ×2 (09:37→21:39)
--- NOTE | 2017-12-28 11:33 | Progress Note ---
Assessment and Plan Assessment and plan: Patient is 72 yo woman with a history copd, hypertension, dyslipidemia and tobacco dependency who presented with sob. She was found to have pO2 of only 48. -Acute hypoxic respiratory failure: continue o2 and treat the copd, pulmonology , Dr. Salamanca is following -AE COPD with aspiration Pneumonitis, poa: treat with iv steroids, nebs, abx -Tobacco dependency: certified alcohol counselor on stopping, add nicotine -Bilateral multilobar pneumonia, poa, already on iv levaquin: continue abx -Cholelithiasis, asymmetrical: continue to monitor -Hypokalemia: monitor closely -DLP: continue statin -Hypertension: continue norvasc, low salt diet -DVT prophylaxis: sq heparin elevated d-dimer, get cta chest r/o pe==>CTA chest IMPRESSION: No evidence of pulmonary emboli. Bilateral scattered geographic pulmonary ground-glass opacities, which may be related to multifocal pneumonia. Correlate clinically Cholelithiasis. 12/28/17: pulse ox 94% on Room air. Check pulse ox with activity. Anticipate discharge in 1-2 days. History Interval history: Patient was seen and examined. Follow-up on current diagnosis of sob which is improving. Overnight uneventful. Patient denies any chest pain, nausea/vomiting or severe headaches. Imaging, nursing note, chart, labs and old chart reviewed. Discussed with patient. Hospitalist Physical - Physical exam Narrative exam: GEN: WDWN, NAD, Awake, Alert, Orientated x3 HEENT: NCAT, EOMI, PERRL, OP Clear NECK: supple, no adenopathy, no thyromegaly, no JVD CVS/HEART: RRR, normal S1S2, pulses present bilaterally CHEST/LUNGS: diminished and rhonchi bilateral, Symmetrical chest expansion, good air entry bilaterally GI/Abdomen: soft, NTND, good bowel sounds, no guarding or rebound /Bladder: no suprapubic tenderness, no CVA or paraspinal tenderness EXT/Skin: no c/c/e, no obvious rash MSK: FROM x 4 Neuro: CN 2-12 grossly intact, no new focal deficits Psych: calm - Constitutional Vitals: Temp Pulse Resp BP Pulse Ox 97.9 F 77 20 134/76 97 12/28/17 08:02 12/28/17 10:00 12/28/17 08:02 12/28/17 09:35 12/28/17 08:02 Results - Labs CBC & Chem 7: 12/26/17 05:28 12/26/17 05:28 Labs: Laboratory Last Values WBC 16.2 K/mm3 (4.5-11.0) H 12/26/17 05:28 RBC 4.28 M/mm3 (3.65-5.03) 12/26/17 05:28 Hgb 13.2 gm/dl (10.1-14.3) 12/26/17 05:28 Hct 38.9 % (30.3-42.9) 12/26/17 05:28 MCV 91 fl (79-97) 12/26/17 05:28 MCH 31 pg (28-32) 12/26/17 05:28 MCHC 34 % (30-34) 12/26/17 05:28 RDW 15.1 % (13.2-15.2) 12/26/17 05:28 Plt Count 198 K/mm3 (140-440) 12/26/17 05:28 Lymph % (Auto) 7.8 % (13.4-35.0) L 12/26/17 05:28 [place] % (Auto) 2.8 % (0.0-7.3) 12/26/17 05:28 Eos % (Auto) 0.0 % (0.0-4.3) 12/26/17 05:28 Baso % (Auto) 0.2 % (0.0-1.8) 12/26/17 05:28 Lymph # 1.3 K/mm3 (1.2-5.4) 12/26/17 05:28 [place] # 0.5 K/mm3 (0.0-0.8) 12/26/17 05:28 Eos # 0.0 K/mm3 (0.0-0.4) 12/26/17 05:28 Baso # 0.0 K/mm3 (0.0-0.1) 12/26/17 05:28 Seg Neutrophils % 89.2 % (40.0-70.0) H 12/26/17 05:28 Seg Neutrophils # 14.5 K/mm3 (1.8-7.7) H 12/26/17 05:28 D-Dimer 473.73 ng/mlDDU (0-234) H 12/26/17 13:32 POC ABG pH 7.366 (7.35-7.45) 12/25/17 13:25 POC ABG pCO2 39.3 (35-45) 12/25/17 13:25 POC ABG pO2 48 (80-105) L 12/25/17 13:25 POC ABG HCO3 22.5 12/25/17 13:25 POC ABG Total CO2 24 12/25/17 13:25 POC ABG O2 Sat 82 12/25/17 13:25 POC ABG Base Excess -3 12/25/17 13:25 FiO2 21 % 12/25/17 13:25 Sodium 137 mmol/L (137-145) 12/26/17 05:28 Potassium 3.8 mmol/L (3.6-5.0) 12/26/17 05:28 Chloride 98.5 mmol/L (98-107) 12/26/17 05:28 Carbon Dioxide 24 mmol/L (22-30) 12/26/17 05:28 Anion Gap 18 mmol/L 12/26/17 05:28 BUN 17 mg/dL (7-17) 12/26/17 05:28 Creatinine 0.9 mg/dL (0.7-1.2) 12/26/17 05:28 Estimated GFR > 60 ml/min 12/26/17 05:28 BUN/Creatinine Ratio 19 % 12/26/17 05:28 Glucose 147 mg/dL (65-100) H 12/26/17 05:28 Calcium 8.9 mg/dL (8.4-10.2) 12/26/17 05:28 Total Bilirubin 0.30 mg/dL (0.1-1.2) 12/26/17 05:28 AST 16 units/L (5-40) 12/26/17 05:28 ALT 13 units/L (7-56) 12/26/17 05:28 Alkaline Phosphatase 102 units/L (35-129) 12/26/17 05:28 C-Reactive Protein 9.30 mg/dL (0.00-1.30) H 12/26/17 13:32 NT-Pro-B Natriuret Pep 685.6 pg/mL (0-900) 12/26/17 13:32 Total Protein 7.0 g/dL (6.3-8.2) 12/26/17 05:28 Albumin 3.6 g/dL (3.9-5) L 12/26/17 05:28 Albumin/Globulin Ratio 1.1 % 12/26/17 05:28
--- NOTE | 2017-12-28 19:21 | Progress Note ---
Assessment and Plan Patient alert, awake. Says breathing better. Still has mild wheezing.O2 saturation 97% on 2 litrs O2. Patient has heavy history of smoking. Counselled to stop smoking. Obtaining blood gases and chest xray. Patients PO2 remain low. Patient is candidate for home O2. - Patient Problems (1) Acute hypoxemic respiratory failure Current Visit: Yes Status: Acute Plan to address problem: O2 2 litrs via nasal canula. Albuterol/atrovent aerosol treatments q 6 hours. Continue I/V solumedrol. Increase the dose 100mg I/V q 6 hours. Continue Levaquin. Continue S/C Heparin. Continue Famotadine. Abgs on room air tomorrow. (2) Bilateral pulmonary infiltrates on chest x-ray Current Visit: Yes Status: Acute Plan to address problem: BILATERAL GROUND GLASS INFILTRATES RTEPORTED ON cat SCAN OF CHEST. Patient is on Antibiotic levaquin. Chest xray PA and Lateral tomorrow. (3) COPD exacerbation Current Visit: Yes Status: Acute Plan to address problem: O2 3 litrs via nasal canula. Albuterol/atrovent aerosol treatments q 6 hours. Continue I/V solumedrol. Increase the dose 100mg I/V q 6 hours. Continue Levaquin. Continue S/C Heparin. Continue Famotadine. Subjective Date of service: 12/28/17 Interval history: Patient alert, awake. Says breathing better. Still has mild wheezing.O2 saturation 97% on 2 litrs O2. Patient has heavy history of smoking. Counselled to stop smoking. Obtaining blood gases and chest xray. Patients PO2 remain low. Patient is candidate for home O2. Objective Vital Signs - 12hr 12/28/17 12/28/17 12/28/17 07:31 07:41 08:02 Temperature 97.9 F Pulse Rate Pulse Rate [ 90 88 Anterior Bilateral Throughout] Respiratory 20 Rate Respiratory 20 20 Rate [Anterior Bilateral Throughout] Blood Pressure 134/76 O2 Sat by Pulse 98 97 Oximetry 12/28/17 12/28/17 12/28/17 08:50 09:35 10:00 Temperature Pulse Rate 75 77 77 Pulse Rate [ Anterior Bilateral Throughout] Respiratory Rate Respiratory Rate [Anterior Bilateral Throughout] Blood Pressure 134/76 134/76 O2 Sat by Pulse Oximetry 12/28/17 12/28/17 12/28/17 12:55 13:05 13:31 Temperature 97.9 F Pulse Rate Pulse Rate [ 94 H 95 H Anterior Bilateral Throughout] Respiratory 24 Rate Respiratory 20 20 Rate [Anterior Bilateral Throughout] Blood Pressure 191/90 O2 Sat by Pulse Oximetry 12/28/17 12/28/17 12/28/17 14:23 14:31 16:10 Temperature Pulse Rate 86 86 Pulse Rate [ 86 Anterior Bilateral Throughout] Respiratory Rate Respiratory 20 Rate [Anterior Bilateral Throughout] Blood Pressure 138/68 138/68 O2 Sat by Pulse 97 Oximetry 12/28/17 16:20 Temperature Pulse Rate Pulse Rate [ 90 Anterior Bilateral Throughout] Respiratory Rate Respiratory 20 Rate [Anterior Bilateral Throughout] Blood Pressure O2 Sat by Pulse Oximetry Constitutional: no acute distress, alert Eyes: non-icteric ENT: oropharynx moist Neck: supple, no lymphadenopathy Effort: mildly labored Ascultation: Bilateral: wheezes, rhonchi Cardiovascular: regular rate and rhythm Gastrointestinal: normoactive bowel sounds, soft, non-tender Integumentary: normal Extremities: no cyanosis, no edema Neurologic: normal mental status, non-focal exam, pupils equal and round, CN II- XII normal Psychiatric: anxious CBC and BMP: 12/26/17 05:28 12/26/17 05:28 ABG, PT/INR, D-dimer: ABG POC ABG pH 7.366 (7.35-7.45) 12/25/17 13:25 POC ABG pCO2 39.3 (35-45) 12/25/17 13:25 POC ABG pO2 48 (80-105) L 12/25/17 13:25 POC ABG HCO3 22.5 12/25/17 13:25 POC ABG Total CO2 24 12/25/17 13:25 POC ABG O2 Sat 82 12/25/17 13:25 PT/INR, D-dimer D-Dimer 473.73 ng/mlDDU (0-234) H 12/26/17 13:32 Abnormal lab findings: Abnormal Labs 12/25/17 12/25/17 12/25/17 09:59 09:59 13:25 WBC 13.4 H Hct 43.6 H Lymph % (Auto) [place] % (Auto) 10.2 H [place] # 1.4 H Seg Neutrophils % 72.9 H Seg Neutrophils # 9.8 H D-Dimer POC ABG pO2 48 L Potassium 3.5 L Chloride 97.9 L Glucose 137 H C-Reactive Protein Albumin 12/26/17 12/26/17 12/26/17 05:28 05:28 13:32 WBC 16.2 H Hct Lymph % (Auto) 7.8 L [place] % (Auto) [place] # Seg Neutrophils % 89.2 H Seg Neutrophils # 14.5 H D-Dimer POC ABG pO2 Potassium Chloride Glucose 147 H C-Reactive Protein 9.30 H Albumin 3.6 L 12/26/17 13:32 WBC Hct Lymph % (Auto) [place] % (Auto) [place] # Seg Neutrophils % Seg Neutrophils # D-Dimer 473.73 H POC ABG pO2 Potassium Chloride Glucose C-Reactive Protein Albumin
[2017-12-28] MEDS: PRAVACHOL PO SCH (21:37)
[2017-12-29] MEDS: DUONEB *Not for PRN Use IH SCH ×4 (08:08→20:15)
[2017-12-29] MEDS: PULMICORT IH SCH ×2 (08:08→20:15)
[2017-12-29] MEDS: BROVANA NEBU IH SCH ×2 (08:08→20:15)
[2017-12-29] MEDS: HEPARIN SUB-Q SCH ×2 (09:10→21:44)
[2017-12-29] MEDS: HABITROL TD SCH (09:10)
[2017-12-29] MEDS: LEVAQUIN 750MG/150ML 750 MG/150 ML BAG IV SCH (09:10)
[2017-12-29] MEDS: THALITONE PO SCH (09:11)
[2017-12-29] MEDS: NORVASC PO SCH (09:11)
[2017-12-29] MEDS: APRESOLINE PO SCH ×2 (09:11→21:43)
[2017-12-29] MEDS: CATAPRES PO SCH ×3 (09:11→20:23)
[2017-12-29] MEDS: PEPCID PO SCH ×2 (09:12→21:43)
[2017-12-29] MEDS: SODIUM CHLORIDE FLUSH SYRINGE 10 ML IV SCH ×2 (09:23→21:43)
--- NOTE | 2017-12-29 11:03 | Progress Note ---
Assessment and Plan -Acute hypoxic respiratory failure -AE COPD -Tobacco abuse disorder/Nicotine dependence -Bilateral multi-lobar pneumonia/pneumonitis -Obesity -Cholelithiasis, -Hypokalemia -Continue supplemental oxygen, keep O2 sats>88% -Bronchodilators, steroids, antibiotics -Accucheck with glycemic control, keep blood glucose<180 mg/dL -VTE prophylaxis - Will need follow up CTscan in 3 months to document clearance. -Smoking cessation counselling done at the bedside for over 5 minutes. -Aspiration precautions -Life style modifications and weight loss counselling done at the bedside Subjective Date of service: 12/29/17 Principal diagnosis: Acute hypoxemic rspiratory failure, Multifocal pneumonia, Tobacco abuse Interval history: Seen and examined. Vitals, labs, medications, chart and imaging reviewed. She states she is feeling better, but still has shortness of breath with mini mal exertion. Cough is improving. No fevers or chills. No nausea or vomiting, no diarrhea Objective - Exam Narrative Exam: GEN: WDWN, NAD, Awake, Alert, Orientated x3, Obese HEENT: NCAT, EOMI, PERRL, OP Clear NECK: supple, no adenopathy, no thyromegaly, no JVD CVS/HEART: RRR, normal S1S2, pulses present bilaterally CHEST/LUNGS: diminished andexpiratory wheeze Symmetrical chest expansion, good air entry bilaterally GI/Abdomen: soft, NTND, good bowel sounds, no guarding or rebound /Bladder: no suprapubic tenderness, no CVA or paraspinal tenderness EXT/Skin: no c/c/e, no obvious rash MSK: FROM x 4 Neuro: CN 2-12 grossly intact, no new focal deficits Psych: calm Vital Signs - 12hr 12/29/17 12/29/17 12/29/17 04:12 05:20 07:47 Temperature 98.2 F 98.5 F Pulse Rate 82 79 78 Respiratory 20 20 Rate Blood Pressure 155/90 136/70 O2 Sat by Pulse 95 95 Oximetry 12/29/17 12/29/17 08:08 09:11 Temperature Pulse Rate 78 Respiratory Rate Blood Pressure 136/70 O2 Sat by Pulse 98 Oximetry Constitutional: no acute distress, alert Eyes: non-icteric ENT: oropharynx moist Neck: supple, no lymphadenopathy Effort: mildly labored Ascultation: Bilateral: wheezes, rhonchi Cardiovascular: regular rate and rhythm Gastrointestinal: normoactive bowel sounds, soft, non-tender Integumentary: normal Extremities: no cyanosis, no edema Neurologic: normal mental status, non-focal exam, pupils equal and round, CN II- XII normal Psychiatric: anxious CBC and BMP: 12/26/17 05:28 12/26/17 05:28 ABG, PT/INR, D-dimer: ABG POC ABG pH 7.366 (7.35-7.45) 12/25/17 13:25 POC ABG pCO2 39.3 (35-45) 12/25/17 13:25 POC ABG pO2 48 (80-105) L 12/25/17 13:25 POC ABG HCO3 22.5 12/25/17 13:25 POC ABG Total CO2 24 12/25/17 13:25 POC ABG O2 Sat 82 12/25/17 13:25 PT/INR, D-dimer D-Dimer 473.73 ng/mlDDU (0-234) H 12/26/17 13:32 Abnormal lab findings: Abnormal Labs 12/25/17 12/25/17 12/25/17 09:59 09:59 13:25 WBC 13.4 H Hct 43.6 H Lymph % (Auto) [place] % (Auto) 10.2 H [place] # 1.4 H Seg Neutrophils % 72.9 H Seg Neutrophils # 9.8 H D-Dimer POC ABG pO2 48 L Potassium 3.5 L Chloride 97.9 L Glucose 137 H C-Reactive Protein Albumin 12/26/17 12/26/17 12/26/17 05:28 05:28 13:32 WBC 16.2 H Hct Lymph % (Auto) 7.8 L [place] % (Auto) [place] # Seg Neutrophils % 89.2 H Seg Neutrophils # 14.5 H D-Dimer POC ABG pO2 Potassium Chloride Glucose 147 H C-Reactive Protein 9.30 H Albumin 3.6 L 12/26/17 13:32 WBC Hct Lymph % (Auto) [place] % (Auto) [place] # Seg Neutrophils % Seg Neutrophils # D-Dimer 473.73 H POC ABG pO2 Potassium Chloride Glucose C-Reactive Protein Albumin CT scan - chest: image reviewed (Multifocal GGO, upper lobe predominant)
--- NOTE | 2017-12-29 11:13 | Progress Note ---
Assessment and Plan Assessment and plan: Patient is 72 yo woman with a history copd, hypertension, dyslipidemia and tobacco dependency who presented with sob. She was found to have pO2 of only 48. -Acute hypoxic respiratory failure: continue o2 and treat the copd, pulmonology , Dr. 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 Bilateral scattered geographic pulmonary ground-glass opacities, which may be related to multifocal pneumonia. Correlate clinically Cholelithiasis. 12/28/17: pulse ox 94% on Room air. Check pulse ox with activity. Anticipate discharge in 1-2 days. 12/29/17: still sob, i check her o2 sat with activity, 86%, will ask respiratory to verify. Home with or without oxygen on Sunday. Add antitussive History Interval history: Patient was seen and examined. Follow-up on current diagnosis of sob which is improving. Overnight uneventful. Patient denies any chest pain, nausea/vomiting or severe headaches. Imaging, nursing note, chart, labs and old chart reviewed. Discussed with patient. Hospitalist Physical - Physical exam Narrative exam: GEN: WDWN, NAD, Awake, Alert, Orientated x3 HEENT: NCAT, EOMI, PERRL, OP Clear NECK: supple, no adenopathy, no thyromegaly, no JVD CVS/HEART: RRR, normal S1S2, pulses present bilaterally CHEST/LUNGS: diminished and rhonchi bilateral, Symmetrical chest expansion, good air entry bilaterally GI/Abdomen: soft, NTND, good bowel sounds, no guarding or rebound /Bladder: no suprapubic tenderness, no CVA or paraspinal tenderness EXT/Skin: no c/c/e, no obvious rash MSK: FROM x 4 Neuro: CN 2-12 grossly intact, no new focal deficits Psych: calm - Constitutional Vitals: Temp Pulse Resp BP Pulse Ox 98.5 F 78 18 136/70 98 12/29/17 07:47 12/29/17 09:11 12/29/17 08:18 12/29/17 09:11 12/29/17 08:08 Results - Labs CBC & Chem 7: 12/26/17 05:28 12/26/17 05:28 Labs: Laboratory Last Values WBC 16.2 K/mm3 (4.5-11.0) H 12/26/17 05:28 RBC 4.28 M/mm3 (3.65-5.03) 12/26/17 05:28 Hgb 13.2 gm/dl (10.1-14.3) 12/26/17 05:28 Hct 38.9 % (30.3-42.9) 12/26/17 05:28 MCV 91 fl (79-97) 12/26/17 05:28 MCH 31 pg (28-32) 12/26/17 05:28 MCHC 34 % (30-34) 12/26/17 05:28 RDW 15.1 % (13.2-15.2) 12/26/17 05:28 Plt Count 198 K/mm3 (140-440) 12/26/17 05:28 Lymph % (Auto) 7.8 % (13.4-35.0) L 12/26/17 05:28 [place] % (Auto) 2.8 % (0.0-7.3) 12/26/17 05:28 Eos % (Auto) 0.0 % (0.0-4.3) 12/26/17 05:28 Baso % (Auto) 0.2 % (0.0-1.8) 12/26/17 05:28 Lymph # 1.3 K/mm3 (1.2-5.4) 12/26/17 05:28 [place] # 0.5 K/mm3 (0.0-0.8) 12/26/17 05:28 Eos # 0.0 K/mm3 (0.0-0.4) 12/26/17 05:28 Baso # 0.0 K/mm3 (0.0-0.1) 12/26/17 05:28 Seg Neutrophils % 89.2 % (40.0-70.0) H 12/26/17 05:28 Seg Neutrophils # 14.5 K/mm3 (1.8-7.7) H 12/26/17 05:28 D-Dimer 473.73 ng/mlDDU (0-234) H 12/26/17 13:32 POC ABG pH 7.366 (7.35-7.45) 12/25/17 13:25 POC ABG pCO2 39.3 (35-45) 12/25/17 13:25 POC ABG pO2 48 (80-105) L 12/25/17 13:25 POC ABG HCO3 22.5 12/25/17 13:25 POC ABG Total CO2 24 12/25/17 13:25 POC ABG O2 Sat 82 12/25/17 13:25 POC ABG Base Excess -3 12/25/17 13:25 FiO2 21 % 12/25/17 13:25 Sodium 137 mmol/L (137-145) 12/26/17 05:28 Potassium 3.8 mmol/L (3.6-5.0) 12/26/17 05:28 Chloride 98.5 mmol/L (98-107) 12/26/17 05:28 Carbon Dioxide 24 mmol/L (22-30) 12/26/17 05:28 Anion Gap 18 mmol/L 12/26/17 05:28 BUN 17 mg/dL (7-17) 12/26/17 05:28 Creatinine 0.9 mg/dL (0.7-1.2) 12/26/17 05:28 Estimated GFR > 60 ml/min 12/26/17 05:28 BUN/Creatinine Ratio 19 % 12/26/17 05:28 Glucose 147 mg/dL (65-100) H 12/26/17 05:28 Calcium 8.9 mg/dL (8.4-10.2) 12/26/17 05:28 Total Bilirubin 0.30 mg/dL (0.1-1.2) 12/26/17 05:28 AST 16 units/L (5-40) 12/26/17 05:28 ALT 13 units/L (7-56) 12/26/17 05:28 Alkaline Phosphatase 102 units/L (35-129) 12/26/17 05:28 C-Reactive Protein 9.30 mg/dL (0.00-1.30) H 12/26/17 13:32 NT-Pro-B Natriuret Pep 685.6 pg/mL (0-900) 12/26/17 13:32 Total Protein 7.0 g/dL (6.3-8.2) 12/26/17 05:28 Albumin 3.6 g/dL (3.9-5) L 12/26/17 05:28 Albumin/Globulin Ratio 1.1 % 12/26/17 05:28
[2017-12-29] MEDS: PRAVACHOL PO SCH (21:43)
[2017-12-29] MEDS: ROBITUSSIN AC PO PRN (21:50)
[2017-12-30 08:20] LABS: BUN/Creatinine Ratio 23; Blood Urea Nitrogen 21 mg/dL (7-17); Calcium 9.2 mg/dL (8.4-10.2); Hemolysis Index 4
[2017-12-30 08:25] LABS: Hematocrit 39.7 % (30.3-42.9); Hemoglobin 12.6 gm/dl (10.1-14.3); Mean Platelet Volume 9.4 fl (6-12); Red Blood Count 4.29 M/mm3 (3.65-5.03); Red Cell Distribution Width 15.3 % (13.2-15.2)
[2017-12-30] MEDS: THALITONE PO SCH (10:06)
[2017-12-30] MEDS: PEPCID PO SCH ×2 (10:07→22:13)
[2017-12-30] MEDS: HEPARIN SUB-Q SCH ×2 (10:07→22:14)
[2017-12-30] MEDS: HABITROL TD SCH (10:07)
[2017-12-30] MEDS: NORVASC PO SCH (10:07)
[2017-12-30] MEDS: APRESOLINE PO SCH ×2 (10:07→22:13)
[2017-12-30] MEDS: LEVAQUIN PO SCH (10:07)
[2017-12-30] MEDS: SODIUM CHLORIDE FLUSH SYRINGE 10 ML IV SCH ×2 (10:08→22:14)
[2017-12-30] MEDS: BROVANA NEBU IH SCH ×2 (10:12→21:41)
[2017-12-30] MEDS: PULMICORT IH SCH ×2 (10:13→21:41)
[2017-12-30] MEDS: CATAPRES PO SCH ×3 (10:20→22:13)
--- NOTE | 2017-12-30 11:49 | Progress Note ---
Assessment and Plan Acute hypoxic respiratory failure AE COPD Tobacco abuse disorder/Nicotine dependence Bilateral multi-lobar pneumonia/pneumonitis Obesity Cholelithiasis, Hypokalemia - Continue supplemental oxygen, keep O2 sats>88% - continue Bronchodilators, systemic and inhaled steroids - continue systemic steroids but taper - continue empiric antibiotics - Accucheck with glycemic control, keep blood glucose<180 mg/dL - continue GI & VTE prophylaxis - Will need follow up CTscan in 3 months to document clearance. - Smoking cessation counselling again done at the bedside for over 5 minutes. - Aspiration precautions - Life style modifications and weight loss counselling done at the bedside ... continue other care per attending / other consultants ...25' Subjective Date of service: 12/30/17 Principal diagnosis: Acute hypoxemic rspiratory failure, Multifocal pneumonia, Tobacco abuse Interval history: Patient is seen today for: Acute hypoxemic rspiratory failure, Multifocal pneumonia, Tobacco abuse Seen and examined at bedside; 24hour events reviewed; nursing and respiratory care staff consulted; no adverse overnight events reported to me; resting peacefully; feels better; denies acute chest pains; still wheezing; No N /V/F/C Objective Vital Signs - 12hr 12/30/17 12/30/17 12/30/17 02:25 07:00 10:15 Temperature 98.2 F 98.6 F Pulse Rate 87 74 Pulse Rate [ Anterior Bilateral Throughout] Respiratory 20 Rate Respiratory Rate [Anterior Bilateral Throughout] Blood Pressure 153/77 149/72 [Right] O2 Sat by Pulse 96 96 97 Oximetry 12/30/17 12/30/17 10:20 10:34 Temperature Pulse Rate Pulse Rate [ 74 70 Anterior Bilateral Throughout] Respiratory Rate Respiratory 16 16 Rate [Anterior Bilateral Throughout] Blood Pressure [Right] O2 Sat by Pulse Oximetry Constitutional: no acute distress, alert Eyes: non-icteric ENT: oropharynx moist Neck: supple, no lymphadenopathy Effort: mildly labored Ascultation: Bilateral: wheezes Percussion: Bilateral: not dull Cardiovascular: regular rate and rhythm Gastrointestinal: normoactive bowel sounds, soft, non-tender, non-distended Integumentary: normal Extremities: no cyanosis, no edema, pulses normal Neurologic: normal mental status, non-focal exam, pupils equal and round, CN II- XII normal Psychiatric: mood appropriate, affect normal CBC and BMP: 12/30/17 07:37 12/30/17 07:37 ABG, PT/INR, D-dimer: ABG POC ABG pH 7.366 (7.35-7.45) 12/25/17 13:25 POC ABG pCO2 39.3 (35-45) 12/25/17 13:25 POC ABG pO2 48 (80-105) L 12/25/17 13:25 POC ABG HCO3 22.5 12/25/17 13:25 POC ABG Total CO2 24 12/25/17 13:25 POC ABG O2 Sat 82 12/25/17 13:25 PT/INR, D-dimer D-Dimer 473.73 ng/mlDDU (0-234) H 12/26/17 13:32 Abnormal lab findings: Abnormal Labs 12/25/17 12/25/17 12/25/17 09:59 09:59 13:25 WBC 13.4 H Hct 43.6 H RDW Lymph % (Auto) [place] % (Auto) 10.2 H [place] # 1.4 H Seg Neutrophils % 72.9 H Seg Neutrophils # 9.8 H D-Dimer POC ABG pO2 48 L Potassium 3.5 L Chloride 97.9 L Carbon Dioxide BUN Glucose 137 H C-Reactive Protein Albumin 12/26/17 12/26/17 12/26/17 05:28 05:28 13:32 WBC 16.2 H Hct RDW Lymph % (Auto) 7.8 L [place] % (Auto) [place] # Seg Neutrophils % 89.2 H Seg Neutrophils # 14.5 H D-Dimer POC ABG pO2 Potassium Chloride Carbon Dioxide BUN Glucose 147 H C-Reactive Protein 9.30 H Albumin 3.6 L 12/26/17 12/30/17 12/30/17 13:32 07:37 07:37 WBC 19.3 H Hct RDW 15.3 H Lymph % (Auto) [place] % (Auto) [place] # Seg Neutrophils % Seg Neutrophils # D-Dimer 473.73 H POC ABG pO2 Potassium Chloride 97.2 L Carbon Dioxide 33 H D BUN 21 H Glucose 167 H C-Reactive Protein Albumin Chest x-ray: image reviewed
--- NOTE | 2017-12-30 14:34 | Progress Note ---
Assessment and Plan Assessment and plan: Patient is 72 yo woman with a history copd, hypertension, dyslipidemia and tobacco dependency who presented with sob. She was found to have pO2 of only 48. -Acute hypoxic respiratory failure: continue o2 and treat the copd, pulmonology , Dr. 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 Bilateral scattered geographic pulmonary ground-glass opacities, which may be related to multifocal pneumonia. Correlate clinically Cholelithiasis. 12/28/17: pulse ox 94% on Room air. Check pulse ox with activity. Anticipate discharge in 1-2 days. 12/29/17: still sob, i check her o2 sat with activity, 86%, will ask respiratory to verify. Home with or without oxygen on Sunday. Add antitussive 12/30/17: still requiring o2, sob is less, anticipate d/c home tomorrow with o2 History Interval history: Patient was seen and examined. Follow-up on current diagnosis of sob which is improving. Overnight uneventful. Patient denies any chest pain, nausea/vomiting or severe headaches. Imaging, nursing note, chart, labs and old chart reviewed. Discussed with patient. Hospitalist Physical - Physical exam Narrative exam: GEN: WDWN, NAD, Awake, Alert, Orientated x3 HEENT: NCAT, EOMI, PERRL, OP Clear NECK: supple, no adenopathy, no thyromegaly, no JVD CVS/HEART: RRR, normal S1S2, pulses present bilaterally CHEST/LUNGS: diminished and rhonchi bilateral, Symmetrical chest expansion, good air entry bilaterally GI/Abdomen: soft, NTND, good bowel sounds, no guarding or rebound /Bladder: no suprapubic tenderness, no CVA or paraspinal tenderness EXT/Skin: no c/c/e, no obvious rash MSK: FROM x 4 Neuro: CN 2-12 grossly intact, no new focal deficits Psych: calm - Constitutional Vitals: Temp Pulse Resp BP Pulse Ox 98.6 F 73 20 136/66 96 12/30/17 12:17 12/30/17 12:17 12/30/17 12:17 12/30/17 12:17 12/30/17 12:17 Results - Labs CBC & Chem 7: 12/30/17 07:37 12/30/17 07:37 Labs: Laboratory Last Values WBC 19.3 K/mm3 (4.5-11.0) H 12/30/17 07:37 RBC 4.29 M/mm3 (3.65-5.03) 12/30/17 07:37 Hgb 12.6 gm/dl (10.1-14.3) 12/30/17 07:37 Hct 39.7 % (30.3-42.9) 12/30/17 07:37 MCV 93 fl (79-97) 12/30/17 07:37 MCH 29 pg (28-32) 12/30/17 07:37 MCHC 32 % (30-34) 12/30/17 07:37 RDW 15.3 % (13.2-15.2) H 12/30/17 07:37 Plt Count 226 K/mm3 (140-440) 12/30/17 07:37 Lymph % (Auto) 7.8 % (13.4-35.0) L 12/26/17 05:28 [place] % (Auto) 2.8 % (0.0-7.3) 12/26/17 05:28 Eos % (Auto) 0.0 % (0.0-4.3) 12/26/17 05:28 Baso % (Auto) 0.2 % (0.0-1.8) 12/26/17 05:28 Lymph # 1.3 K/mm3 (1.2-5.4) 12/26/17 05:28 [place] # 0.5 K/mm3 (0.0-0.8) 12/26/17 05:28 Eos # 0.0 K/mm3 (0.0-0.4) 12/26/17 05:28 Baso # 0.0 K/mm3 (0.0-0.1) 12/26/17 05:28 Seg Neutrophils % 89.2 % (40.0-70.0) H 12/26/17 05:28 Seg Neutrophils # 14.5 K/mm3 (1.8-7.7) H 12/26/17 05:28 D-Dimer 473.73 ng/mlDDU (0-234) H 12/26/17 13:32 POC ABG pH 7.366 (7.35-7.45) 12/25/17 13:25 POC ABG pCO2 39.3 (35-45) 12/25/17 13:25 POC ABG pO2 48 (80-105) L 12/25/17 13:25 POC ABG HCO3 22.5 12/25/17 13:25 POC ABG Total CO2 24 12/25/17 13:25 POC ABG O2 Sat 82 12/25/17 13:25 POC ABG Base Excess -3 12/25/17 13:25 FiO2 21 % 12/25/17 13:25 Sodium 139 mmol/L (137-145) 12/30/17 07:37 Potassium 3.8 mmol/L (3.6-5.0) 12/30/17 07:37 Chloride 97.2 mmol/L (98-107) L 12/30/17 07:37 Carbon Dioxide 33 mmol/L (22-30) H D 12/30/17 07:37 Anion Gap 13 mmol/L 12/30/17 07:37 BUN 21 mg/dL (7-17) H 12/30/17 07:37 Creatinine 0.9 mg/dL (0.7-1.2) 12/30/17 07:37 Estimated GFR > 60 ml/min 12/30/17 07:37 BUN/Creatinine Ratio 23 % 12/30/17 07:37 Glucose 167 mg/dL (65-100) H 12/30/17 07:37 Calcium 9.2 mg/dL (8.4-10.2) 12/30/17 07:37 Magnesium 2.30 mg/dL (1.7-2.3) 12/30/17 07:37 Total Bilirubin 0.30 mg/dL (0.1-1.2) 12/26/17 05:28 AST 16 units/L (5-40) 12/26/17 05:28 ALT 13 units/L (7-56) 12/26/17 05:28 Alkaline Phosphatase 102 units/L (35-129) 12/26/17 05:28 C-Reactive Protein 9.30 mg/dL (0.00-1.30) H 12/26/17 13:32 NT-Pro-B Natriuret Pep 685.6 pg/mL (0-900) 12/26/17 13:32 Total Protein 7.0 g/dL (6.3-8.2) 12/26/17 05:28 Albumin 3.6 g/dL (3.9-5) L 12/26/17 05:28 Albumin/Globulin Ratio 1.1 % 12/26/17 05:28
[2017-12-30] MEDS: DUONEB *Not for PRN Use IH SCH ×4 (15:08→21:48)
[2017-12-30] MEDS: ROBITUSSIN AC PO PRN (22:12)
[2017-12-30] MEDS: PRAVACHOL PO SCH (22:13)
[2017-12-31] MEDS: BROVANA NEBU IH SCH ×2 (08:15→20:21)
[2017-12-31] MEDS: DUONEB *Not for PRN Use IH SCH ×3 (08:15→20:22)
[2017-12-31] MEDS: PULMICORT IH SCH ×2 (08:15→20:21)
[2017-12-31] MEDS: THALITONE PO SCH (10:17)
[2017-12-31] MEDS: HEPARIN SUB-Q SCH ×2 (10:18→22:38)
[2017-12-31] MEDS: CATAPRES PO SCH ×3 (10:18→22:38)
[2017-12-31] MEDS: PEPCID PO SCH ×2 (10:18→22:38)
[2017-12-31] MEDS: APRESOLINE PO SCH ×2 (10:19→22:38)
[2017-12-31] MEDS: LEVAQUIN PO SCH (10:19)
[2017-12-31] MEDS: HABITROL TD SCH (10:20)
[2017-12-31] MEDS: NORVASC PO SCH (10:20)
[2017-12-31] MEDS: SODIUM CHLORIDE FLUSH SYRINGE 10 ML IV SCH ×2 (10:21→22:38)
--- NOTE | 2017-12-31 12:12 | Progress Note ---
Assessment and Plan Assessment and plan: Patient is 72 yo woman with a history copd, hypertension, dyslipidemia and tobacco dependency who presented with sob. She was found to have pO2 of only 48. -Acute hypoxic respiratory failure: continue o2 and treat the copd, pulmonology , Dr. Salamanca is following -AE COPD with aspiration Pneumonitis, poa: treat with iv steroids, nebs, abx -Tobacco dependency: sales counselor on stopping, add nicotine -Bilateral multilobar pneumonia, poa, already on iv levaquin: continue abx -Cholelithiasis, asymmetrical: continue to monitor -Hypokalemia: monitor closely -DLP: continue statin -Hypertension: continue norvasc, low salt diet -DVT prophylaxis: sq heparin elevated d-dimer, get cta chest r/o pe==>CTA chest IMPRESSION: No evidence of pulmonary emboli. Bilateral scattered geographic pulmonary ground-glass opacities, which may be related to multifocal pneumonia. Correlate clinically Cholelithiasis. 12/28/17: pulse ox 94% on Room air. Check pulse ox with activity. Anticipate discharge in 1-2 days. 12/29/17: still sob, i check her o2 sat with activity, 86%, will ask respiratory to verify. Home with or without oxygen on Sunday. Add antitussive 12/30/17: still requiring o2, sob is less, anticipate d/c home tomorrow with o2 D/c am once cleared by pulmonology and o2 set up History Interval history: Patient was seen and examined. Follow-up on current diagnosis of sob which is improving. Overnight uneventful. Patient denies any chest pain, nausea/vomiting or severe headaches. Imaging, nursing note, chart, labs and old chart reviewed. Discussed with patient. Hospitalist Physical - Physical exam Narrative exam: GEN: WDWN, NAD, Awake, Alert, Orientated x3 HEENT: NCAT, EOMI, PERRL, OP Clear NECK: supple, no adenopathy, no thyromegaly, no JVD CVS/HEART: RRR, normal S1S2, pulses present bilaterally CHEST/LUNGS: diminished and rhonchi bilateral, Symmetrical chest expansion, good air entry bilaterally GI/Abdomen: soft, NTND, good bowel sounds, no guarding or rebound /Bladder: no suprapubic tenderness, no CVA or paraspinal tenderness EXT/Skin: no c/c/e, no obvious rash MSK: FROM x 4 Neuro: CN 2-12 grossly intact, no new focal deficits Psych: calm - Constitutional Vitals: Temp Pulse Resp BP Pulse Ox 97.7 F 72 16 140/80 97 12/31/17 07:38 12/31/17 10:18 12/31/17 08:22 12/31/17 10:18 12/31/17 08:17 Results - Labs CBC & Chem 7: 12/30/17 07:37 12/30/17 07:37 Labs: Laboratory Last Values WBC 19.3 K/mm3 (4.5-11.0) H 12/30/17 07:37 RBC 4.29 M/mm3 (3.65-5.03) 12/30/17 07:37 Hgb 12.6 gm/dl (10.1-14.3) 12/30/17 07:37 Hct 39.7 % (30.3-42.9) 12/30/17 07:37 MCV 93 fl (79-97) 12/30/17 07:37 MCH 29 pg (28-32) 12/30/17 07:37 MCHC 32 % (30-34) 12/30/17 07:37 RDW 15.3 % (13.2-15.2) H 12/30/17 07:37 Plt Count 226 K/mm3 (140-440) 12/30/17 07:37 Lymph % (Auto) 7.8 % (13.4-35.0) L 12/26/17 05:28 [place] % (Auto) 2.8 % (0.0-7.3) 12/26/17 05:28 Eos % (Auto) 0.0 % (0.0-4.3) 12/26/17 05:28 Baso % (Auto) 0.2 % (0.0-1.8) 12/26/17 05:28 Lymph # 1.3 K/mm3 (1.2-5.4) 12/26/17 05:28 [place] # 0.5 K/mm3 (0.0-0.8) 12/26/17 05:28 Eos # 0.0 K/mm3 (0.0-0.4) 12/26/17 05:28 Baso # 0.0 K/mm3 (0.0-0.1) 12/26/17 05:28 Seg Neutrophils % 89.2 % (40.0-70.0) H 12/26/17 05:28 Seg Neutrophils # 14.5 K/mm3 (1.8-7.7) H 12/26/17 05:28 D-Dimer 473.73 ng/mlDDU (0-234) H 12/26/17 13:32 POC ABG pH 7.366 (7.35-7.45) 12/25/17 13:25 POC ABG pCO2 39.3 (35-45) 12/25/17 13:25 POC ABG pO2 48 (80-105) L 12/25/17 13:25 POC ABG HCO3 22.5 12/25/17 13:25 POC ABG Total CO2 24 12/25/17 13:25 POC ABG O2 Sat 82 12/25/17 13:25 POC ABG Base Excess -3 12/25/17 13:25 FiO2 21 % 12/25/17 13:25 Sodium 139 mmol/L (137-145) 12/30/17 07:37 Potassium 3.8 mmol/L (3.6-5.0) 12/30/17 07:37 Chloride 97.2 mmol/L (98-107) L 12/30/17 07:37 Carbon Dioxide 33 mmol/L (22-30) H D 12/30/17 07:37 Anion Gap 13 mmol/L 12/30/17 07:37 BUN 21 mg/dL (7-17) H 12/30/17 07:37 Creatinine 0.9 mg/dL (0.7-1.2) 12/30/17 07:37 Estimated GFR > 60 ml/min 12/30/17 07:37 BUN/Creatinine Ratio 23 % 12/30/17 07:37 Glucose 167 mg/dL (65-100) H 12/30/17 07:37 Calcium 9.2 mg/dL (8.4-10.2) 12/30/17 07:37 Magnesium 2.30 mg/dL (1.7-2.3) 12/30/17 07:37 Total Bilirubin 0.30 mg/dL (0.1-1.2) 12/26/17 05:28 AST 16 units/L (5-40) 12/26/17 05:28 ALT 13 units/L (7-56) 12/26/17 05:28 Alkaline Phosphatase 102 units/L (35-129) 12/26/17 05:28 C-Reactive Protein 9.30 mg/dL (0.00-1.30) H 12/26/17 13:32 NT-Pro-B Natriuret Pep 685.6 pg/mL (0-900) 12/26/17 13:32 Total Protein 7.0 g/dL (6.3-8.2) 12/26/17 05:28 Albumin 3.6 g/dL (3.9-5) L 12/26/17 05:28 Albumin/Globulin Ratio 1.1 % 12/26/17 05:28
[2017-12-31] MEDS ORDERED: DULCOLAX PR ONE (16:00)
[2017-12-31] MEDS ORDERED: DULCOLAX PO PRN (21:48)
[2017-12-31] MEDS: PRAVACHOL PO SCH (22:38)
[2017-12-31] MEDS: ROBITUSSIN AC PO PRN (22:57)
--- NOTE | 2018-01-01 07:11 | Progress Note ---
Assessment and Plan -Acute hypoxic respiratory failure -AE COPD -Tobacco abuse disorder/Nicotine dependence -Bilateral multi-lobar pneumonia/pneumonitis -Obesity -Cholelithiasis, -Hypokalemia -Continue supplemental oxygen, keep O2 sats>88% -Bronchodilators, steroids, antibiotics -Accucheck with glycemic control, keep blood glucose<180 mg/dL -VTE prophylaxis - Will need follow up CTscan in 3 months to document clearance as multifocal SIMONA as present like this. -Smoking cessation counselling done at the bedside for over 5 minutes. -Aspiration precautions -Life style modifications and weight loss counselling done at the bedside -Discharge planning Subjective Date of service: 12/31/17 Principal diagnosis: Acute hypoxemic rspiratory failure, Multifocal pneumonia, Tobacco abuse Interval history: Seen and examined. Vitals, labs, medications, chart and imaging reviewed. She states she is feeling better, but still has shortness of breath with mini mal exertion. Cough is improving. No fevers or chills. No nausea or vomiting, no diarrhea Objective - Exam Narrative Exam: GEN: WDWN, NAD, Awake, Alert, Orientated x3 HEENT: NCAT, EOMI, PERRL, OP Clear NECK: supple, no adenopathy, no thyromegaly, no JVD CVS/HEART: RRR, normal S1S2, pulses present bilaterally CHEST/LUNGS: diminished and rhonchi bilateral, Symmetrical chest expansion, good air entry bilaterally GI/Abdomen: soft, NTND, good bowel sounds, no guarding or rebound /Bladder: no suprapubic tenderness, no CVA or paraspinal tenderness EXT/Skin: no c/c/e, no obvious rash MSK: FROM x 4 Neuro: CN 2-12 grossly intact, no new focal deficits Psych: calm Vital Signs - 12hr 12/31/17 12/31/17 12/31/17 20:00 20:23 20:33 Temperature 98.4 F Pulse Rate 77 Pulse Rate [ 80 88 Anterior Bilateral Throughout] Respiratory 20 Rate Respiratory 19 15 Rate [Anterior Bilateral Throughout] Blood Pressure 138/70 Blood Pressure [Right] O2 Sat by Pulse 88 94 Oximetry 12/31/17 12/31/17 01/01/18 21:11 22:00 02:00 Temperature 98.2 F Pulse Rate 86 79 Pulse Rate [ Anterior Bilateral Throughout] Respiratory 20 20 Rate Respiratory Rate [Anterior Bilateral Throughout] Blood Pressure Blood Pressure 148/72 104/44 [Right] O2 Sat by Pulse 93 93 Oximetry Constitutional: no acute distress, alert Eyes: non-icteric ENT: oropharynx moist Neck: supple, no lymphadenopathy Effort: mildly labored Ascultation: Bilateral: wheezes, rhonchi Percussion: Bilateral: not dull Cardiovascular: regular rate and rhythm Gastrointestinal: normoactive bowel sounds, soft, non-tender, non-distended Integumentary: normal Extremities: no cyanosis, no edema, pulses normal Neurologic: normal mental status, non-focal exam, pupils equal and round, CN II- XII normal Psychiatric: mood appropriate, affect normal CBC and BMP: 12/30/17 07:37 12/30/17 07:37 ABG, PT/INR, D-dimer: ABG POC ABG pH 7.366 (7.35-7.45) 12/25/17 13:25 POC ABG pCO2 39.3 (35-45) 12/25/17 13:25 POC ABG pO2 48 (80-105) L 12/25/17 13:25 POC ABG HCO3 22.5 12/25/17 13:25 POC ABG Total CO2 24 12/25/17 13:25 POC ABG O2 Sat 82 12/25/17 13:25 PT/INR, D-dimer D-Dimer 473.73 ng/mlDDU (0-234) H 12/26/17 13:32 Abnormal lab findings: Abnormal Labs 12/25/17 12/25/17 12/25/17 09:59 09:59 13:25 WBC 13.4 H Hct 43.6 H RDW Lymph % (Auto) [place] % (Auto) 10.2 H Thomas # 1.4 H Seg Neutrophils % 72.9 H Seg Neutrophils # 9.8 H D-Dimer POC ABG pO2 48 L Potassium 3.5 L Chloride 97.9 L Carbon Dioxide BUN Glucose 137 H C-Reactive Protein Albumin 12/26/17 12/26/17 12/26/17 05:28 05:28 13:32 WBC 16.2 H Hct RDW Lymph % (Auto) 7.8 L Thomas % (Auto) Thomas # Seg Neutrophils % 89.2 H Seg Neutrophils # 14.5 H D-Dimer POC ABG pO2 Potassium Chloride Carbon Dioxide BUN Glucose 147 H C-Reactive Protein 9.30 H Albumin 3.6 L 12/26/17 12/30/17 12/30/17 13:32 07:37 07:37 WBC 19.3 H Hct RDW 15.3 H Lymph % (Auto) [place] % (Auto) Thomas # Seg Neutrophils % Seg Neutrophils # D-Dimer 473.73 H POC ABG pO2 Potassium Chloride 97.2 L Carbon Dioxide 33 H D BUN 21 H Glucose 167 H C-Reactive Protein Albumin
--- NOTE | 2018-01-01 07:11 | Progress Note ---
Assessment and Plan -Acute hypoxic respiratory failure -AE COPD -Tobacco abuse disorder/Nicotine dependence -Bilateral multi-lobar pneumonia/pneumonitis -Obesity -Cholelithiasis, -Hypokalemia- resolved. -Metabolic alkalosis -Continue supplemental oxygen, keep O2 sats>88% -Bronchodilators, steroids( start weaning), antibiotics -Accucheck with glycemic control, keep blood glucose<180 mg/dL -VTE prophylaxis - Will need follow up CTscan in 3 months to document clearance as multifocal SIMONA as present like this. -Smoking cessation counselling done at the bedside for over 5 minutes, continue to reiterate the need for smoking cessation. -Aspiration precautions -Life style modifications and weight loss counselling done at the bedside -Discharge planning- outpatient pulmonary follow up within 7 days of discharge Need nebulizer machine Subjective Date of service: 01/01/18 Principal diagnosis: Acute hypoxemic rspiratory failure, Multifocal pneumonia, Tobacco abuse Interval history: Seen and examined. Vitals, labs, medications, chart and imaging reviewed. She states she is feeling better, but still has shortness of breath with minimal exertion. Cough is improving. No fevers or chills. No nausea or vomiting, no diarrhea Objective Vital Signs - 12hr 12/31/17 12/31/17 12/31/17 20:00 20:23 20:33 Temperature 98.4 F Pulse Rate 77 Pulse Rate [ 80 88 Anterior Bilateral Throughout] Respiratory 20 Rate Respiratory 19 15 Rate [Anterior Bilateral Throughout] Blood Pressure 138/70 Blood Pressure [Right] O2 Sat by Pulse 88 94 Oximetry 12/31/17 12/31/17 01/01/18 21:11 22:00 02:00 Temperature 98.2 F Pulse Rate 86 79 Pulse Rate [ Anterior Bilateral Throughout] Respiratory 20 20 Rate Respiratory Rate [Anterior Bilateral Throughout] Blood Pressure Blood Pressure 148/72 104/44 [Right] O2 Sat by Pulse 93 93 Oximetry Constitutional: no acute distress, alert Eyes: non-icteric ENT: oropharynx moist Neck: supple, no lymphadenopathy Effort: mildly labored Ascultation: Bilateral: wheezes, rhonchi Percussion: Bilateral: not dull Cardiovascular: regular rate and rhythm Gastrointestinal: normoactive bowel sounds, soft, non-tender, non-distended Integumentary: normal Extremities: no cyanosis, no edema, pulses normal Neurologic: normal mental status, non-focal exam, pupils equal and round, CN II- XII normal Psychiatric: mood appropriate, affect normal CBC and BMP: 12/30/17 07:37 12/30/17 07:37 ABG, PT/INR, D-dimer: ABG POC ABG pH 7.366 (7.35-7.45) 12/25/17 13:25 POC ABG pCO2 39.3 (35-45) 12/25/17 13:25 POC ABG pO2 48 (80-105) L 12/25/17 13:25 POC ABG HCO3 22.5 12/25/17 13:25 POC ABG Total CO2 24 12/25/17 13:25 POC ABG O2 Sat 82 12/25/17 13:25 PT/INR, D-dimer D-Dimer 473.73 ng/mlDDU (0-234) H 12/26/17 13:32 Abnormal lab findings: Abnormal Labs 12/25/17 12/25/17 12/25/17 09:59 09:59 13:25 WBC 13.4 H Hct 43.6 H RDW Lymph % (Auto) [place] % (Auto) 10.2 H [place] # 1.4 H Seg Neutrophils % 72.9 H Seg Neutrophils # 9.8 H D-Dimer POC ABG pO2 48 L Potassium 3.5 L Chloride 97.9 L Carbon Dioxide BUN Glucose 137 H C-Reactive Protein Albumin 12/26/17 12/26/17 12/26/17 05:28 05:28 13:32 WBC 16.2 H Hct RDW Lymph % (Auto) 7.8 L [place] % (Auto) [place] # Seg Neutrophils % 89.2 H Seg Neutrophils # 14.5 H D-Dimer POC ABG pO2 Potassium Chloride Carbon Dioxide BUN Glucose 147 H C-Reactive Protein 9.30 H Albumin 3.6 L 12/26/17 12/30/17 12/30/17 13:32 07:37 07:37 WBC 19.3 H Hct RDW 15.3 H Lymph % (Auto) [place] % (Auto) [place] # Seg Neutrophils % Seg Neutrophils # D-Dimer 473.73 H POC ABG pO2 Potassium Chloride 97.2 L Carbon Dioxide 33 H D BUN 21 H Glucose 167 H C-Reactive Protein Albumin
[2018-01-01] MEDS: BROVANA NEBU IH SCH ×2 (09:46→21:41)
[2018-01-01] MEDS: PULMICORT IH SCH ×2 (09:46→21:40)
[2018-01-01] MEDS: DUONEB *Not for PRN Use IH SCH ×3 (09:46→21:41)
[2018-01-01] MEDS: HEPARIN SUB-Q SCH ×2 (10:31→21:22)
[2018-01-01] MEDS: THALITONE PO SCH (10:32)
[2018-01-01] MEDS: PEPCID PO SCH ×2 (10:32→21:22)
[2018-01-01] MEDS: APRESOLINE PO SCH ×2 (10:32→21:22)
[2018-01-01] MEDS: LEVAQUIN PO SCH (10:32)
[2018-01-01] MEDS: NORVASC PO SCH (10:33)
[2018-01-01] MEDS: HABITROL TD SCH (10:33)
[2018-01-01] MEDS: CATAPRES PO SCH ×3 (10:33→21:23)
[2018-01-01] MEDS: SODIUM CHLORIDE FLUSH SYRINGE 10 ML IV SCH ×2 (10:34→21:24)
[2018-01-01] MEDS: ROBITUSSIN AC PO PRN ×2 (12:31→21:31)
--- NOTE | 2018-01-01 13:49 | Consultation ---
Medications and Allergies Allergies Allergy/AdvReac Type Severity Reaction Status Date / Time No Known Allergies Allergy Verified 12/25/17 09:37 Home Medications Medication Instructions Recorded Confirmed Last Taken Type Amlodipine Besylate [Norvasc] 5 mg PO QDAY 12/25/17 12/25/17 Unknown History Chlorthalidone [Thalitone] 25 mg PO QDAY 12/25/17 12/25/17 Unknown History Pravastatin [Pravachol] 40 mg PO QHS 12/25/17 12/25/17 Unknown History cloNIDine [Catapres] 0.2 mg PO TID 12/25/17 12/25/17 Unknown History hydrALAZINE [Apresoline TAB] 100 mg PO BID 12/25/17 12/25/17 Unknown History Active Meds: Active Medications Acetaminophen (Tylenol) 650 mg PO Q4H PRN PRN Reason: Pain MILD(1-3)/Fever >100.5/PHILLIP Albuterol (Proventil) 2.5 mg IH Q4HRT PRN PRN Reason: Shortness Of Breath Albuterol/Ipratropium (Duoneb *Not For Prn Use*) 1 ampul IH TIDRT [facility] Last Admin: 01/01/18 09:46 Dose: Not Given Amlodipine Besylate (Norvasc) 5 mg PO QDAY [facility] Last Admin: 01/01/18 10:33 Dose: 5 mg Arformoterol Tartrate (Brovana Nebu) 15 mcg IH Q12HRT [facility] Last Admin: 01/01/18 09:46 Dose: 15 mcg Bisacodyl (Dulcolax) 10 mg PO QDAY PRN PRN Reason: Constipation Last Admin: 12/31/17 23:41 Dose: 10 mg Budesonide (Pulmicort) 0.5 mg IH Q12HRT [facility] Last Admin: 01/01/18 09:46 Dose: 0.5 mg Chlorthalidone (Thalitone) 25 mg PO QDAY [facility] Last Admin: 01/01/18 10:32 Dose: 25 mg Clonidine HCl (Catapres) 0.2 mg PO TID [facility] Last Admin: 01/01/18 10:33 Dose: 0.2 mg Famotidine (Pepcid) 20 mg PO BID [facility] Last Admin: 01/01/18 10:32 Dose: 20 mg Heparin Sodium (Porcine) (Heparin) 5,000 unit SUB-Q Q12HR [facility] Last Admin: 01/01/18 10:31 Dose: 5,000 unit Hydralazine HCl (Apresoline) 100 mg PO BID [facility] Last Admin: 01/01/18 10:32 Dose: 100 mg Levofloxacin (Levaquin) 750 mg PO Q24HR [facility] Stop: 01/02/18 23:59 Last Admin: 01/01/18 10:32 Dose: 750 mg Methylprednisolone Sodium Succinate (Solu-Medrol) 80 mg IV Q8H [facility] Last Admin: 01/01/18 10:53 Dose: 80 mg Nicotine (Habitrol) 21 mg TD QDAY [facility] Last Admin: 01/01/18 10:33 Dose: 21 mg Ondansetron HCl (Zofran) 4 mg IV Q8H PRN PRN Reason: Nausea And Vomiting Oxycodone/Acetaminophen (Percocet 5/325) 1 tab PO Q6H PRN PRN Reason: Pain, Moderate (4-6) Last Admin: 12/30/17 22:12 Dose: 1 tab Pravastatin Sodium (Pravachol) 40 mg PO QHS [facility] Last Admin: 12/31/17 22:38 Dose: 40 mg Pseudoephedrine/Acetam/Chlorphenir (Robitussin Ac) 10 ml PO Q4H PRN PRN Reason: Cough Last Admin: 01/01/18 12:31 Dose: 10 ml Sodium Chloride (Sodium Chloride Flush Syringe 10 Ml) 10 ml IV BID [facility] Last Admin: 01/01/18 10:34 Dose: 10 ml Sodium Chloride (Sodium Chloride Flush Syringe 10 Ml) 10 ml IV PRN PRN PRN Reason: LINE FLUSH Last Admin: 12/31/17 02:33 Dose: 10 ml Exam - Constitutional Vitals: Temp Pulse Resp BP Pulse Ox 97.5 F L 80 22 126/63 95 01/01/18 09:49 01/01/18 10:33 01/01/18 10:00 01/01/18 09:49 01/01/18 09:49 Results - Labs CBC & Chem 7: 12/30/17 07:37 12/30/17 07:37
--- NOTE | 2018-01-01 14:38 | Progress Note ---
Assessment and Plan Assessment and plan: Patient is 72 yo woman with a history copd, hypertension, dyslipidemia and tobacco dependency who presented with sob. She was found to have pO2 of only 48. 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 No new events overnight. SOB has improved at rest, still some with minimal exertion. Labs and nursing notes reviewed. Hospitalist Physical - Physical exam Narrative exam: General appearance: Present: no acute distress, well-nourished - EENT Eyes: Present: PERRL, EOM intact ENT: hearing intact, clear oral mucosa - Neck Present: supple, normal ROM - Respiratory Respiratory effort: normal Respiratory: bilateral: CTA - Cardiovascular Rhythm: regular Heart Sounds: Present: S1 & S2 - Extremities Extremities: no ischemia, No edema - Abdominal General gastrointestinal: soft, non-tender, non-distended - Integumentary Integumentary: Present: clear, warm, dry - Psychiatric Psychiatric: appropriate mood/affect, intact judgment & insight, cooperative - Neurologic Neurologic: CNII-XII intact, moves all extremities - Constitutional Vitals: Temp Pulse Resp BP Pulse Ox 97.5 F L 80 22 126/63 95 01/01/18 09:49 01/01/18 10:33 01/01/18 10:00 01/01/18 09:49 01/01/18 09:49 Results - Labs CBC & Chem 7: 12/30/17 07:37 12/30/17 07:37 Labs: Laboratory Last Values WBC 19.3 K/mm3 (4.5-11.0) H 12/30/17 07:37 RBC 4.29 M/mm3 (3.65-5.03) 12/30/17 07:37 Hgb 12.6 gm/dl (10.1-14.3) 12/30/17 07:37 Hct 39.7 % (30.3-42.9) 12/30/17 07:37 MCV 93 fl (79-97) 12/30/17 07:37 MCH 29 pg (28-32) 12/30/17 07:37 MCHC 32 % (30-34) 12/30/17 07:37 RDW 15.3 % (13.2-15.2) H 12/30/17 07:37 Plt Count 226 K/mm3 (140-440) 12/30/17 07:37 Lymph % (Auto) 7.8 % (13.4-35.0) L 12/26/17 05:28 [place] % (Auto) 2.8 % (0.0-7.3) 12/26/17 05:28 Eos % (Auto) 0.0 % (0.0-4.3) 12/26/17 05:28 Baso % (Auto) 0.2 % (0.0-1.8) 12/26/17 05:28 Lymph # 1.3 K/mm3 (1.2-5.4) 12/26/17 05:28 [place] # 0.5 K/mm3 (0.0-0.8) 12/26/17 05:28 Eos # 0.0 K/mm3 (0.0-0.4) 12/26/17 05:28 Baso # 0.0 K/mm3 (0.0-0.1) 12/26/17 05:28 Seg Neutrophils % 89.2 % (40.0-70.0) H 12/26/17 05:28 Seg Neutrophils # 14.5 K/mm3 (1.8-7.7) H 12/26/17 05:28 D-Dimer 473.73 ng/mlDDU (0-234) H 12/26/17 13:32 POC ABG pH 7.366 (7.35-7.45) 12/25/17 13:25 POC ABG pCO2 39.3 (35-45) 12/25/17 13:25 POC ABG pO2 48 (80-105) L 12/25/17 13:25 POC ABG HCO3 22.5 12/25/17 13:25 POC ABG Total CO2 24 12/25/17 13:25 POC ABG O2 Sat 82 12/25/17 13:25 POC ABG Base Excess -3 12/25/17 13:25 FiO2 21 % 12/25/17 13:25 Sodium 139 mmol/L (137-145) 12/30/17 07:37 Potassium 3.8 mmol/L (3.6-5.0) 12/30/17 07:37 Chloride 97.2 mmol/L (98-107) L 12/30/17 07:37 Carbon Dioxide 33 mmol/L (22-30) H D 12/30/17 07:37 Anion Gap 13 mmol/L 12/30/17 07:37 BUN 21 mg/dL (7-17) H 12/30/17 07:37 Creatinine 0.9 mg/dL (0.7-1.2) 12/30/17 07:37 Estimated GFR > 60 ml/min 12/30/17 07:37 BUN/Creatinine Ratio 23 % 12/30/17 07:37 Glucose 167 mg/dL (65-100) H 12/30/17 07:37 Calcium 9.2 mg/dL (8.4-10.2) 12/30/17 07:37 Magnesium 2.30 mg/dL (1.7-2.3) 12/30/17 07:37 Total Bilirubin 0.30 mg/dL (0.1-1.2) 12/26/17 05:28 AST 16 units/L (5-40) 12/26/17 05:28 ALT 13 units/L (7-56) 12/26/17 05:28 Alkaline Phosphatase 102 units/L (35-129) 12/26/17 05:28 C-Reactive Protein 9.30 mg/dL (0.00-1.30) H 12/26/17 13:32 NT-Pro-B Natriuret Pep 685.6 pg/mL (0-900) 12/26/17 13:32 Total Protein 7.0 g/dL (6.3-8.2) 12/26/17 05:28 Albumin 3.6 g/dL (3.9-5) L 12/26/17 05:28 Albumin/Globulin Ratio 1.1 % 12/26/17 05:28
[2018-01-01] MEDS: PRAVACHOL PO SCH (21:22)
[2018-01-02] MEDS: CATAPRES PO SCH ×2 (08:47→14:50)
[2018-01-02] MEDS: DUONEB *Not for PRN Use IH SCH ×3 (08:54→13:14)
[2018-01-02] MEDS: BROVANA NEBU IH SCH (08:56)
[2018-01-02] MEDS: PULMICORT IH SCH (08:56)
--- NOTE | 2018-01-02 09:18 | Progress Note ---
Assessment and Plan -Acute hypoxic respiratory failure -AE COPD -Tobacco abuse disorder/Nicotine dependence -Bilateral multi-lobar pneumonia/pneumonitis -Obesity -Cholelithiasis, -Hypokalemia- resolved. -Metabolic alkalosis -Continue supplemental oxygen, keep O2 sats>88% -Bronchodilators, steroids( start weaning), antibiotics -Accucheck with glycemic control, keep blood glucose<180 mg/dL -VTE prophylaxis - Will need follow up CTscan in 3 months to document clearance as multifocal SIMONA as present like this. -Smoking cessation counselling done at the bedside for over 5 minutes, continue to reiterate the need for smoking cessation. -Aspiration precautions -Life style modifications and weight loss counselling done at the bedside -Discharge planning- outpatient pulmonary follow up within 7 days of discharge -Needs nebulizer machine Discharge planning discussed with Dr. Gaston, hospitalist, and with patient and RN Subjective Date of service: 01/02/18 Principal diagnosis: Acute hypoxemic rspiratory failure, Multifocal pneumonia, Tobacco abuse Interval history: Seen and examined. Vitals, labs, medications, chart and imaging reviewed. She states she is feeling better Did not qualify for home oxygen on 6 minute walk test. Still has some baseline shortness of breath but much improved No fevers or chills. No nausea or vomiting, no diarrhea Objective Vital Signs - 12hr 01/01/18 01/01/18 01/01/18 21:23 21:41 22:00 Temperature Pulse Rate 80 Pulse Rate [ 79 Anterior Bilateral Throughout] Respiratory 20 Rate Respiratory 20 Rate [Anterior Bilateral Throughout] Blood Pressure 131/72 O2 Sat by Pulse 95 Oximetry 01/01/18 01/02/18 01/02/18 22:21 02:04 07:32 Temperature 98.6 F 98.5 F Pulse Rate 73 72 Pulse Rate [ 82 Anterior Bilateral Throughout] Respiratory 18 20 Rate Respiratory 20 Rate [Anterior Bilateral Throughout] Blood Pressure 135/60 150/60 O2 Sat by Pulse 92 97 Oximetry 01/02/18 01/02/18 01/02/18 08:47 08:57 09:02 Temperature Pulse Rate 72 Pulse Rate [ 85 88 Anterior Bilateral Throughout] Respiratory Rate Respiratory 18 18 Rate [Anterior Bilateral Throughout] Blood Pressure 150/60 O2 Sat by Pulse 96 Oximetry Constitutional: no acute distress, alert Eyes: non-icteric ENT: oropharynx moist Neck: supple, no lymphadenopathy Effort: mildly labored Ascultation: Bilateral: wheezes, rhonchi Percussion: Bilateral: not dull Cardiovascular: regular rate and rhythm Gastrointestinal: normoactive bowel sounds, soft, non-tender, non-distended Integumentary: normal Extremities: no cyanosis, no edema, pulses normal Neurologic: normal mental status, non-focal exam, pupils equal and round, CN II- XII normal Psychiatric: mood appropriate, affect normal CBC and BMP: 12/30/17 07:37 12/30/17 07:37 ABG, PT/INR, D-dimer: ABG POC ABG pH 7.366 (7.35-7.45) 12/25/17 13:25 POC ABG pCO2 39.3 (35-45) 12/25/17 13:25 POC ABG pO2 48 (80-105) L 12/25/17 13:25 POC ABG HCO3 22.5 12/25/17 13:25 POC ABG Total CO2 24 12/25/17 13:25 POC ABG O2 Sat 82 12/25/17 13:25 PT/INR, D-dimer D-Dimer 473.73 ng/mlDDU (0-234) H 12/26/17 13:32 Abnormal lab findings: Abnormal Labs 12/25/17 12/25/17 12/25/17 09:59 09:59 13:25 WBC 13.4 H Hct 43.6 H RDW Lymph % (Auto) [place] % (Auto) 10.2 H [place] # 1.4 H Seg Neutrophils % 72.9 H Seg Neutrophils # 9.8 H D-Dimer POC ABG pO2 48 L Potassium 3.5 L Chloride 97.9 L Carbon Dioxide BUN Glucose 137 H C-Reactive Protein Albumin 12/26/17 12/26/17 12/26/17 05:28 05:28 13:32 WBC 16.2 H Hct RDW Lymph % (Auto) 7.8 L Anson % (Auto) Anson # Seg Neutrophils % 89.2 H Seg Neutrophils # 14.5 H D-Dimer POC ABG pO2 Potassium Chloride Carbon Dioxide BUN Glucose 147 H C-Reactive Protein 9.30 H Albumin 3.6 L 12/26/17 12/30/17 12/30/17 13:32 07:37 07:37 WBC 19.3 H Hct RDW 15.3 H Lymph % (Auto) Anson % (Auto) Anson # Seg Neutrophils % Seg Neutrophils # D-Dimer 473.73 H POC ABG pO2 Potassium Chloride 97.2 L Carbon Dioxide 33 H D BUN 21 H Glucose 167 H C-Reactive Protein Albumin
[2018-01-02] MEDS: LEVAQUIN PO SCH (09:56)
[2018-01-02] MEDS: APRESOLINE PO SCH (09:56)
[2018-01-02] MEDS: PEPCID PO SCH (09:56)
[2018-01-02] MEDS: SODIUM CHLORIDE FLUSH SYRINGE 10 ML IV SCH (09:57)
[2018-01-02] MEDS: NORVASC PO SCH (09:57)
[2018-01-02] MEDS: HABITROL TD SCH (09:57)
[2018-01-02] MEDS: HEPARIN SUB-Q SCH (09:58)
[2018-01-02] MEDS: THALITONE PO SCH (10:47)
[2018-01-02 14:51] VITALS: BP 148/71
--- NOTE | 2018-01-02 16:20 | Discharge Summary ---
<MIKAELA COLON - Last Filed: 01/02/18 16:17> Providers - Providers Date of Admission: 12/25/17 11:50 Attending physician: STIVEN HILL 12/25/17 Consult to Case Management [CONS] Routine Services Needed at Discharge: Home Health Services Notified:: lucio 12/25/17 18:58 Consult to Physician [CONS] Routine Comment: ANSW. SERV. MARY BETH/BHAVESH Consulting Provider: LISHA ARREGUIN Physician Instructions: Reason For Exam: acute respiratory failure Primary care physician: ASSISTANT PROFESSOR OF COMMUNICATION Hospitalization Condition: Good Disposition: DC-01 TO HOME OR SELFCARE Exam - Physical Exam Narrative exam: General appearance: Present: no acute distress, well-nourished - EENT Eyes: Present: PERRL, EOM intact ENT: hearing intact, clear oral mucosa - Neck Present: supple, normal ROM - Respiratory Respiratory effort: normal Respiratory: bilateral: CTA - Cardiovascular Rhythm: regular Heart Sounds: Present: S1 & S2 - Extremities Extremities: no ischemia, No edema - Abdominal General gastrointestinal: soft, non-tender, non-distended - Integumentary Integumentary: Present: clear, warm, dry - Psychiatric Psychiatric: appropriate mood/affect, intact judgment & insight, cooperative - Neurologic Neurologic: CNII-XII intact, moves all extremities - Constitutional Vitals: Temp Pulse Resp BP Pulse Ox 98.0 F 95 H 20 148/71 94 01/02/18 14:03 01/02/18 14:50 01/02/18 14:03 01/02/18 14:50 01/02/18 14:03 Plan Follow up with: LARISA JONES MD [Primary Care Provider] - 3-5 Days LOLITA ALVAREZ MD [Staff Physician] - 7 Days <STIVEN HILL - Last Filed: 01/02/18 17:45> Providers - Providers Date of Admission: 12/25/17 11:50 Date of discharge: 01/02/18 Attending physician: STIVEN HILL 12/25/17 Consult to Case Management [CONS] Routine Services Needed at Discharge: Home Health Services Notified:: lucio 12/25/17 18:58 Consult to Physician [CONS] Routine Comment: ANSW. SERVPetra CLINTON/BHAVESH Consulting Provider: LISHA ARREGUIN Physician Instructions: Reason For Exam: acute respiratory failure Primary care physician: ASSISTANT PROFESSOR OF COMMUNICATION Hospitalization Hospital course: Assessment and Plan Assessment and plan: Patient is 72 yo woman with a history copd, hypertension, dyslipidemia and tobacco dependency who presented with sob. She was found to have pO2 of only 48. Acute hypoxic respiratory failure continue o2 and treat the copd, pulmonology is following Improved Will D/c on oral steroids Acute exacerbation of COPD Patient on high dose iv steroids, nebs, abx, she will continue, customer contact representative following] Will D/c on oral steroids Tobacco dependency Patient counseled on cessation, continue nicotine patch Hypokalemia Has resolved, monitor closely Hyperlipidemia continue statin Hypertension continue norvasc, low salt diet DVT prophylaxis sq heparin Core Measure Documentation - Palliative Care Palliative Care/ Comfort Measures: Not Applicable - Core Measures Any of the following diagnoses?: none Exam - Constitutional Vitals: Temp Pulse Resp BP Pulse Ox 98.0 F 95 H 20 148/71 94 01/02/18 14:03 01/02/18 14:50 01/02/18 14:03 01/02/18 14:50 01/02/18 14:03 General appearance: Present: no acute distress, well-nourished - EENT Eyes: Present: PERRL ENT: hearing intact, clear oral mucosa - Neck Neck: Present: supple, normal ROM - Respiratory Respiratory effort: normal Respiratory: bilateral: CTA - Cardiovascular Heart Sounds: Present: S1 & S2. Absent: rub, click - Extremities Extremities: pulses symmetrical, No edema Peripheral Pulses: within normal limits - Abdominal General gastrointestinal: Present: soft, non-tender, non-distended, normal bowel sounds Female genitourinary: Present: normal - Integumentary Integumentary: Present: clear, warm, dry - Musculoskeletal Musculoskeletal: gait normal, strength equal bilaterally - Psychiatric Psychiatric: appropriate mood/affect, intact judgment & insight - Neurologic Neurologic: CNII-XII intact, moves all extremities Plan Activity: no restrictions Diet: low fat, low cholesterol, low salt
--- NOTE | 2018-01-02 17:50 | Discharge Summary ---
Providers - Providers Date of Admission: 12/25/17 11:50 Date of discharge: 01/02/18 Attending physician: STIVEN HILL 12/25/17 Consult to Case Management [CONS] Routine Services Needed at Discharge: Home Health Services Notified:: lucio 12/25/17 18:58 Consult to Physician [CONS] Routine Comment: ANSW. SERVPetra CLINTON/BHAVESH Consulting Provider: LISHA ARREGUIN Physician Instructions: Reason For Exam: acute respiratory failure Primary care physician: LARISA JONES MD Hospitalization Condition: Good Disposition: DC-01 TO HOME OR SELFCARE Core Measure Documentation - Palliative Care Palliative Care/ Comfort Measures: Not Applicable - Core Measures Any of the following diagnoses?: none Exam - Constitutional Vitals: Temp Pulse Resp BP Pulse Ox 98.0 F 95 H 20 148/71 94 01/02/18 14:03 01/02/18 14:50 01/02/18 14:03 01/02/18 14:50 01/02/18 14:03 Plan Follow up with: PRIMARY MD ROBERT [Primary Care Provider] - 3-5 Days
== END 2018-01-02 17:50 | disposition home or self-care (01) | DRG 177 ==
LOC: ED 08:36 → 2B-ACE 11:50
PROVIDERS: ADMIT Internal Medicine; ATTEND Internal Medicine
PROC: 4A033R1 Measurement of Arterial Saturation, Peripheral, Percutaneous Approach (ICD-10-PCS; principal; 2017-12-25)
DX: J69.0 Pneumonitis due to inhalation of food and vomit (principal); J96.01 Acute respiratory failure with hypoxia; J45.901 Unspecified asthma with (acute) exacerbation; E78.5 Hyperlipidemia, unspecified; K80.20 Calculus of gallbladder without cholecystitis without obstruction; I10 Essential (primary) hypertension; E66.9 Obesity, unspecified; F17.200 Nicotine dependence, unspecified, uncomplicated; E87.6 Hypokalemia; Z82.49 Family history of ischemic heart disease and other diseases of the circulatory system; Z79.899 Other long term (current) drug therapy; Z90.710 Acquired absence of both cervix and uterus; Z68.24 Body mass index [BMI] 24.0-24.9, adult; Z71.6 Tobacco abuse counseling
CPT/HCPCS: 36415; 36600; 71045; 71275; 80048; 80053; 82803; 83735; 83880; 85025; 85027; 85379; 86140; 87070; 87205; 93005; 93010; 94640; 94644; 94760; 96365; 96366; 96367; 96375; A9270-GY; J1644; J1956; J2930; J3475; J7040; J7050; Q9967